=== PATIENT | female | born 1930 | race Caucasian/White ===

== ENCOUNTER 2016-07-02 13:07 | Day surgery (SDC) | payer MEDICARE, OTHER ==
--- NOTE | 2016-07-02 14:18 | PCM.PREANE ---
Preanesthetic Assessment - ANESTHESIA/TRANSFUSION/FAMILY HX Anesthesia/Transfusion History: No Prior Transfusion(s), Prior Anesthesia Type of Anesthesia Reaction: Denies: Allergy, Anesthesia Awareness, Excessive Somnolence, Excessive Nausea/Vomiting, Excessive Itching, Excessive Shivering, Malignant Hyperthermia, Malignant Hyperthermia, Family History, Pseudocholinesterase Deficiency, Pseudocholinesterase Deficiency, Family History of, Urinary Retention, Unknown, Other (see below) Family History of Anesthesia Reaction: No Intubation History: Unknown - REVIEW OF SYSTEMS Constitutional: Reports: no symptoms 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 (right sided weakness since stroke 07/2015/ TIA also noted.) Respiratory: Reports: no symptoms (former smoker quit 1959) Cardiovascular: Reports: no symptoms (History of PR with stents placed 2014./CAD ), blood pressure problem GI: Reports: no symptoms (GERD), nausea (and distension) Other: Reports: depression - PHYSICAL ASSESSMENT HR: 79 O2 Sat by Pulse Oximetry: 96 RR: 16 BP: 138/89 Temp: 36.3 C Height: 1.63 m Weight: 47.174 kg NPO Status Date: 07/02/16 NPO Status Time: 05:00 (toast and coffee) ASA Class: 3 Mental Status: alert & oriented x3 Airway Class: Mallampati = 2 Dentition: Reports: normal dentition, caries Thyro-Mental Finger Breadths: 3 Mouth Opening Finger Breadths: 3 ROM/Head Extension: full Respiratory Status: lungs clear to auscultation bilaterally Cardiovascular Status: regular rate & rhythm, normal S1, S2, no murmur - IMAGING/EKG Impressions: EK: SR, repolarization abnormality siggests ischemia, anterolateral, prolonged QT - ALLERGIES Allergies/Adverse Reactions: Allergies Allergy/AdvReac Type Severity Reaction Status Date / Time nitrofurantoin Allergy Nausea and Verified 11/26/15 16:04 [From Macrobid] Vomiting nitrofurantoin Allergy Nausea and Verified 11/26/15 16:04 macrocrystalline Vomiting [From Macrobid] - ANESTHESIA PLAN Preop Beta Eugene: No Anesthesia Type Planned: MAC - ACKNOWLEDGEMENTS Pt an appropriate candidate for the planned anesthesia: Yes Alternatives and risks of anesthesia discussed w pt/guardian: Yes Pt/Guardian understands and agree with anesthesia plan: Yes PreAnesthesia Questionnaire Other HEENT History: wears eyeglasses Cardiovascular History: Reports: Hypertension, PR, PTCA, Stents Other Cardiovascular History: stent placment in Feb 2015. Other Gastrointestinal History: ongoing abdominal pains for several months. 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 They proved to be benign. One was the size of a softball and the other one was the size of a lemon. Surgery was carried out by Dr. Ny in [place]. Other Musculoskeletal History: fx pelvis, fx R) clavicle Neurological History: Reports: Migraines - Infectious Disease History Infectious Disease History: Reports: Chicken pox, Mumps - Past Surgical History Female Surgical History: Reports: Hysterectomy - SUBSTANCE USE Smoking Status *Q: Former Smoker Tobacco Use Within Last Twelve Months: No Second Hand Smoke Exposure: No Recreational Drug Use History: No - HOME MEDS Home Medications: Home Meds Cholecalciferol (Vitamin D3) [Vitamin D3] 2,000 unit PO DAILY 01/25/15 [History] Clopidogrel Bisulfate [Plavix] 75 mg PO DAILY 01/25/15 [History] Metoprolol Tartrate [Lopressor] 12.5 mg PO BID 01/25/15 [History] atorvaSTATin [Lipitor] 10 mg PO DAILY 01/25/15 [History] Zolpidem [Ambien] 5 mg PO BEDTIME 04/21/15 [History] Cyanocobalamin (Vitamin B-12) [Vitamin B-12] 1,000 mcg PO DAILY 09/28/15 [ History] Polyethylene Glycol 3350 [MiraLAX] 17 gm PO DAILY PRN #0 packet 11/28/15 [Rx]
[2016-07-02] MEDS ORDERED: Lidocaine 1%/Sod Bicarbonate in NS 8.4% 1 ML Syringe IV ONE (15:03)
[2016-07-02] MEDS ORDERED: Lactated Ringers 1,000 ML IV SCH (15:15)
[2016-07-02] MEDS ORDERED: Propofol 200 MG/20 ML SDV ONE (15:58)
[2016-07-02] MEDS ORDERED: Lidocaine 1% 2 ML SDV ONE (16:01)
--- NOTE | 2016-07-02 16:20 | PCM48HPAN ---
Post Anesthesia Note - EVALUATION WITHIN 48HRS OF ANESTHETIC Vital Signs in Normal Range: Yes Patient Participated in Evaluation: Yes Respiratory Function Stable: Yes Airway Patent: Yes Cardiovascular Function Stable: Yes Hydration Status Stable: Yes Pain Control Satisfactory: Yes Nausea and Vomiting Control Satisfactory: Yes Mental Status Recovered: Yes
--- NOTE | 2016-07-02 16:26 | PCM.OPNOTE ---
- General Post-Op/Procedure Note Date of Surgery/Procedure: 07/02/16 Operative Procedure(s): Diagnostic EGD with cold forceps biopsy Pre Op Diagnosis: Chronic abdominal pain, melena Post-Op Diagnosis: Gastritis, gastric polyps Anesthesia Technique: MAC Primary Surgeon: Hoa Weston Anesthesia Provider: Sheila Wade Pathology: 1. Small bowel biopsy 2. Antral biopsy 3. Distal esophageal biopsy 4. Gastric polyps Fluid Replacement, Intraop: 300 (mL crystalloid) EBL in mLs: 1 Complications: None Condition: Good Free Text/Narrative:: INDICATION FOR PROCEDURE: The patient is an 85-year-old woman who is referred to me by Dr. Fred Gonzalez for evaluation of chronic abdominal pain. EGD had been discussed with the patient and risks of the associated procedure. The patient found these risks acceptable and agreed to proceed. DESCRIPTION OF PROCEDURE: The patient was taken to the operating room and placed in the left lateral decubitus position. After induction of adequate sedation, a bite block was placed. A standard Olympus gastroscope was inserted into the oropharynx and guided down the esophagus without difficulty. The gastroesophageal junction was appreciated at 40 cm from the teeth. There was no evidence of stricture or esophageal ulcerations. The scope was advanced into the stomach, and there was mild diffuse gastritis. The scope was passed into the proximal jejunum and the duodenum which were unremarkable. There were no petechiae or ulcerations. The proximal jejunum was grossly normal in appearance. Multiple cold forceps biopsies were obtained of the proximal jejunum and duodenum. The scope was withdrawn into the antrum, and additional cold forceps biopsies were obtained. The remainder of the gastric body was examined, and there a couple of gastric polyps at the cardia, 2 of the polyps were removed using cold forceps. The scope was retroflexed, and there was no evidence of hiatal hernia. The scope was straightened and withdrawn to the GE junction. Additional cold forceps biopsies were obtained of the distal esophagus. The scope was withdrawn through the remainder of the esophagus and no further abnormalities were noted. The posterior oropharynx was grossly normal in appearance. The scope was then fully withdrawn. The patient was awakened from sedation and transferred to the recovery room in stable condition having tolerated the procedure well. POSTOPERATIVE PLAN: I discussed with the patient my intraoperative findings and postoperative recommendations. The patient will follow up in approximately 7- 10 days to discuss their pathology and how their symptoms are progressing. The patient is to continue Protonix and Carafate. I have asked the patient to follow a GERD\gastritis diet. The patient is to call with any worsening of symptoms or questions prior to appointment. If biopsies are unremarkable, colonoscopy could be considered.
[2016-07-02 17:15] VITALS: BP 139/77
== END 2016-07-02 17:16 | disposition home or self-care (01) ==
LOC: JD.SDS 13:07
PROVIDERS: ATTEND Surgery
DX: K29.50 Unspecified chronic gastritis without bleeding (principal); E78.5 Hyperlipidemia, unspecified; I25.10 Atherosclerotic heart disease of native coronary artery without angina pectoris; I25.2 Old myocardial infarction; M19.90 Unspecified osteoarthritis, unspecified site; K21.9 Gastro-esophageal reflux disease without esophagitis; I10 Essential (primary) hypertension; G43.909 Migraine, unspecified, not intractable, without status migrainosus; M81.0 Age-related osteoporosis without current pathological fracture; Z88.8 Allergy status to other drugs, medicaments and biological substances; Z79.899 Other long term (current) drug therapy; Z90.49 Acquired absence of other specified parts of digestive tract; Z98.890 Other specified postprocedural states; Z87.891 Personal history of nicotine dependence; Z79.02 Long term (current) use of antithrombotics/antiplatelets
CPT/HCPCS: 43239; 88305; J7120; J2704

== ENCOUNTER 2016-09-17 10:21 | Day surgery (SDC) | payer MEDICARE, OTHER ==
--- NOTE | 2016-09-17 06:29 | PCM.HP ---
H&P History of Present Illness - General Date of Service: 09/17/16 Admit Problem/Dx: abdominal pain, nausea, early satiety, weight loss, constipation, hx of anemia, Source of Information: Patient - History of Present Illness Initial Comments - Free Text/Narative: The patient is a 85-year-old female initially referred by Anamika Galindo NP for evaluation of nausea. Patient's PCP is Dr. Gonzalez. Patient wanted colonoscopy in 2015 to evaluate her symptoms. Family was at one time concerned this may be detrimental. Family and PCP felt upper endoscopy would be appropriate to start. Patient is a resident of [facility]. Patient is known to the clinic, she did see Dr. Pretty from -11/2015 and was started on a bowel regimen. Miralax and Metamucil. Her symptoms improved. Gastric emptying study was normal. She had a CT scan of the abdomen and pelvis , nothing acute, small fat containing inguinal hernia noted. Aorta with arthrosclerotic change, no aneurysm. Endoscopy was deferred as she was doing well in November of 2015. Her symptoms worsened. The patient then underwent an diagnostic EGD for chronic abdominal pain and melena with Dr. Hoa Weston at [facility] on 07/02/2016 . The procedure revealed mild diffuse gastritis . Dr. Weston did start the patient on Protonix and Carafate. Patient was advised start a GERD gastritis diet. Dr. Weston did note if biopsies were unremarkable colonoscopy can be considered.findings of diffuse gastritis (pathology mild gastritis) and gastric polyp She was initially doing well after EGD and was gaining weight, however, in August her symptoms again worsened. I last saw the patient 08/15/16. She was having abdominal pain, early satiety, decreased appetitte, constipation, occasional nausea and weight loss. She desired a colonoscopy. She reports no changes in her health history. Her weight is 86.5 pounds per [place] paperwork. She reports she did finish the prep and did have small frequent stools last night. Day surgery staff report she had a honey consistency stool this am in pre-op. Patient still complains of generalized abdominal pain, low appetite and lack of interest in activitites. She would like to proceed with colonoscopy. 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 MRI has been ordered to further evaluate. Her CBC and CMP were recently drawn and were also acceptable with the exception of macrocytosis. - Related Data Allergies/Adverse Reactions: Allergies Allergy/AdvReac Type Severity Reaction Status Date / Time nitrofurantoin Allergy Nausea and Verified 09/16/16 16:08 [From Macrobid] Vomiting nitrofurantoin Allergy Nausea and Verified 09/16/16 16:08 macrocrystalline Vomiting [From Macrobid] Home Medications: Home Meds Cholecalciferol (Vitamin D3) [Vitamin D3] 2,000 unit PO DAILY 01/25/15 [History] Acetaminophen [Tylenol] 650 mg PO Q6HR PRN 07/02/16 [History] Alpha Lipoic Acid 600 mg PO DAILY 07/02/16 [History] Gabapentin [Neurontin] 100 mg PO TID 07/02/16 [History] Multivitamin with Minerals [Multiple Vitamin] 1 each PO DAILY 07/02/16 [History] Ondansetron [Zofran ODT] 4 mg PO Q6H PRN 07/02/16 [History] Pantoprazole Sodium [Protonix] 40 mg PO BID 07/02/16 [History] Nut Tx, Lact-Reduced, Iron [Boost VHC] 237 ml PO QID 09/16/16 [History] Polyethylene Glycol 3350 [MiraLAX] 17 gm PO DAILY PRN 09/16/16 [History] Aspirin [Adult Low Dose Aspirin EC] 81 mg PO DAILY 09/17/16 [History] Past Medical History HEENT History: Reports: Macular Degeneration Other HEENT History: wears eyeglasses Cardiovascular History: Reports: Hypertension, [place], PTCA, Stents Other Cardiovascular History: stent placment in Feb 2015. 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 They proved to be benign. One was the size of a softball and the other one was the size of a lemon. Surgery was carried out by Dr. Ny in [place]. 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 Pne size of grapefruit, one size of lemon. Pt verbalized decreased abdominal pain since surgery Social & Family History - Family History Family Medical History: Noncontributory Cardiac: Reports: IN - Tobacco Use Smoking Status *Q: Former Smoker Years of Tobacco use: 12 Packs/Tins Daily: 1 Used Tobacco, but Quit: Yes Month Tobacco Last Used: 1959 Second Hand Smoke Exposure: No - Recreational Drug Use Recreational Drug Use: No - Living Situation & Occupation Living situation: Reports: , Alone H&P Review of Systems - Review of Systems: Review Of Systems: See Below Free Text/Narrative: No changes to ROS. Denies any exertional chest pain or shortness of breath. No history of any easy bleeding or bruising. No personal or familial history of clotting or bleeding disorders. No history of anesthetic complications. No history of familial anesthetic complications. Presently denies chest pain, palpitations, lower extremity edema, dyspnea at rest, orthopnea, claudication, wheezing, obstructive sleep apnea, chronic cough , upper respiratory symptoms in the last two weeks. History of blood thinner use , stopped in 2016 after stenting. History of anemia. No history of seizure. Hx of stroke, no intervention. No history of fever, chills, or nightsweats General: Reports: Weakness, Fatigue, Decreased Appetite, Other (weight loss ). Denies: Fever HEENT: Reports: No Symptoms Pulmonary: Reports: No Symptoms. Denies: Shortness of Breath, Wheezing Cardiovascular: Reports: No Symptoms. Denies: Chest Pain, Palpitations Gastrointestinal: Reports: Abdominal Pain (generalized), Constipation, Decreased Appetite, Nausea. Denies: Black Stool, Bloody Stool, Diarrhea, Melena , Vomiting Genitourinary: Reports: No Symptoms Musculoskeletal: Reports: No Symptoms Skin: Reports: No Symptoms Psychiatric: Reports: No Symptoms Neurological: Reports: No Symptoms Hematologic/Lymphatic: Reports: No Symptoms Immunologic: Reports: No Symptoms Exam - Exam Exam: See Below - Vital Signs Weight: 39.916 kg - Exam General: Alert, Oriented, Other (thin and frail appearing) HEENT: Conjunctiva Clear Lungs: Clear to Auscultation, Normal Respiratory Effort Cardiovascular: Regular Rate, Regular Rhythm, Normal S1, Normal S2 Abdomen: Soft, Tenderness (tenderness to LLQ, umbilicus and right lateral abdomen on exam to deep palpation). No: Distention, Guarding Back Exam: Normal Inspection (multiple seborrheic keratoses) Extremities: Normal Inspection Skin: Warm, Dry, Intact Neuro Extensive - Mental Status: Alert, Oriented x3, Normal Mood/Affect, Normal Cognition, Memory Intact Psychiatric: Alert, Normal Affect, Normal Mood *Q Meaningful Use (ADM) - VTE *Q VTE Criteria *Q: - Stroke *Q Stroke Criteria *Q: - AMI *Q AMI Criteria *Q: - Problem List (1) Abdominal pain SNOMED Code(s): 13261763 ICD Code: R10.9 - UNSPECIFIED ABDOMINAL PAIN Status: Acute Current Visit : Yes (2) Early satiety SNOMED Code(s): 279838119 ICD Code: R68.81 - EARLY SATIETY Status: Acute Current Visit: Yes (3) Weight loss SNOMED Code(s): 604894349, 452388419 ICD Code: R63.4 - ABNORMAL WEIGHT LOSS Status: Acute Current Visit: Yes (4) Constipation SNOMED Code(s): 76891214 ICD Code: K59.00 - CONSTIPATION, UNSPECIFIED Status: Acute Current Visit : Yes Qualifiers: Constipation type: unspecified constipation type Qualified Code(s): K59.00 - Constipation, unspecified (5) History of anemia SNOMED Code(s): 943084102 ICD Code: Z86.2 - PRSNL HISTORY OF DIS OF THE BLD/BLD-FORM ORG/IMMUN MECHN Status: Acute Current Visit: Yes (6) Early satiety SNOMED Code(s): 075521854 ICD Code: R68.81 - EARLY SATIETY Status: Acute Current Visit: No Problem List Initiated/Reviewed/Updated: Yes Assessment/Plan Comment:: 85yr female with abdominal pain, nausea, early satiety, weight loss, constipation, hx of anemia, need for diagnostic colonoscopy. Patient is frail, hx of [place] 2014, ovarian cystectomy 2014, stroke 2016, TIA 2015 , intertrochanteric fracture 2016 PLAN: Patient desires colonoscopy. Family is agreeable. We discussed performing a diagnostic colonoscopy. We discussed the procedure and post operative expectations. We discussed the risks and benefits, including, pain, bleeding, need for additional procedures, damage to surrounding structures, bowel perforation. She reports she did complete the colonoscopy prep, however, has had honey consistency stools this am in pre-op. She has some generalized abdominal pain and tenderness, which is baseline for her. I personally reviewed the patient's previous medical records and laboratory studies. Patient verbalized understanding and agreed with care plan. This patient was evaluated with Dr. Hoa Weston. TIMBO Trevizo scribing for Dr. Hoa Weston General Surgery Department [facility]
--- NOTE | 2016-09-17 09:23 | PCM.OPNOTE ---
- General Post-Op/Procedure Note Date of Surgery/Procedure: 09/17/16 Operative Procedure(s): Diagnostic colonoscopy with cold forceps polypectomy Pre Op Diagnosis: Weight loss, abdominal pain, early satiety, constipation Post-Op Diagnosis: Small ascending colon polyp Anesthesia Technique: MAC Primary Surgeon: Hoa Weston Anesthesia Provider: Corwin Brito Linter Operator: Fatuma Townsend Pathology: 1. Ascending colon polyp Complications: None Condition: Good Free Text/Narrative:: FLUIDS: 600 mL crystalloid INDICATION FOR PROCEDURE: The patient is an 85-year-old woman who was referred to me by Dr. Fred Gonzalez and SHAHEEN Dominguez for evaluation for abdominal pain , weight loss, constipation. Diagnostic EGD had been previously performed which showed mild diffuse gastritis. Performing a diagnostic colonoscopy and the associated risks of the procedure had been discussed with the patient. The patient found these risks acceptable and agreed to proceed. DESCRIPTION OF PROCEDURE: The patient was taken to the operating room and placed in left lateral decubitus position. After induction of adequate sedation , a digital rectal exam was performed which was unremarkable. A pediatric Olympus colonoscope was inserted into the rectum and guided under direct visualization to the appendiceal orifice and ileocecal valve. Counter pressure was utilized to facilitate passage of the scope. The scope was then slowly withdrawn through the colon. The quality of the prep was excellent. There was no evidence of angiodysplasias. There was severe diverticulosis throughout the sigmoid colon. There was a small polyp noted in the ascending colon which was removed with cold forceps. The scope was withdrawn into the rectum and retroflexed. There was no significant prominence of the patient's internal hemorrhoids. The scope was straightened, the colon was desufflated, and the scope was withdrawn. The patient was awakened from sedation and transferred to the recovery room in stable condition having tolerated the procedure well. POSTOPERATIVE PLAN: I discussed with the patient's relative, Gayatri, my intraoperative findings and recommendations. She should proceed with MRI of the abdomen to further investigate the possibility of pancreatic lesion. No further colonoscopies are recommended. There was no source of her symptoms identified on colonoscopy today and a letter will be sent with her pathology results.
[~2016-09-17 10:21] MED LIST: Lactated Ringers 1,000 ML IV SCH; Lidocaine 1%/Sod Bicarbonate in NS 8.4% 1 ML Syringe IV PRN; Sodium Chloride 0.9% 10 ML Syringe FLUSH PRN
--- NOTE | 2016-09-17 10:40 | PCM.PREANE ---
Preanesthetic Assessment - Anesthesia/Transfusion/Family Hx Anesthesia History: Prior Anesthesia Without Reaction Family History of Anesthesia Reaction: No Transfusion History: No Prior Transfusion(s) - Review of Systems General: No Symptoms Pulmonary: No Symptoms Cardiovascular: No Symptoms Gastrointestinal: Abdominal pain, Constipation, Other (wt loss) Neurological: Other (stroke 2-3 years ago) Other: Reports: None - Physical Assessment NPO Status Date: 09/16/16 NPO Status Time: 22:00 (pills with sip this am) Pulse: 90 O2 Sat by Pulse Oximetry: 97 Respiratory Rate: 16 Blood Pressure: 141/85 Temperature: 99.0 F Height: 5 ft 4 in Weight: 39.916 kg ASA Class: 3 Mental Status: Alert & Oriented x3 Airway Class: Mallampati = 1 Dentition: Reports: Normal Dentition Thyro-Mental Finger Breadths: 3 Mouth Opening Finger Breadths: 3 ROM/Head Extension: Full Lungs: Clear to auscultation, Normal respiratory effort Cardiovascular: Regular Rate, Regular Rhythm - Allergies Allergies/Adverse Reactions: Allergies Allergy/AdvReac Type Severity Reaction Status Date / Time nitrofurantoin Allergy Nausea and Verified 09/16/16 16:08 [From Macrobid] Vomiting nitrofurantoin Allergy Nausea and Verified 09/16/16 16:08 macrocrystalline Vomiting [From Macrobid] - Blood Blood Available: No - Acknowledgements Anesthesia Type Planned: MAC Pt an Appropriate Candidate for the Planned Anesthesia: Yes Alternatives and Risks of Anesthesia Discussed w Pt/Guardian: Yes Pt/Guardian Understands and Agrees with Anesthesia Plan: Yes PreAnesthesia Questionnaire HEENT History: Reports: Macular Degeneration Other HEENT History: wears eyeglasses Cardiovascular History: Reports: Hypertension, [place], PTCA, Stents Other Cardiovascular History: stent placment in Feb 2015. 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 They proved to be benign. One was the size of a softball and the other one was the size of a lemon. Surgery was carried out by Dr. Ny in [place]. 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 Pne size of grapefruit, one size of lemon. Pt verbalized decreased abdominal pain since surgery - SUBSTANCE USE Smoking Status *Q: Former Smoker (quit 1959) Tobacco Use Within Last Twelve Months: No Second Hand Smoke Exposure: No Days Per Week of Alcohol Use: 0 Recreational Drug Use History: No - HOME MEDS Home Medications: Home Meds Cholecalciferol (Vitamin D3) [Vitamin D3] 2,000 unit PO DAILY 01/25/15 [History] Acetaminophen [Tylenol] 650 mg PO Q6HR PRN 07/02/16 [History] Alpha Lipoic Acid 600 mg PO DAILY 07/02/16 [History] Gabapentin [Neurontin] 100 mg PO TID 07/02/16 [History] Multivitamin with Minerals [Multiple Vitamin] 1 each PO DAILY 07/02/16 [History] Ondansetron [Zofran ODT] 4 mg PO Q6H PRN 07/02/16 [History] Pantoprazole Sodium [Protonix] 40 mg PO BID 07/02/16 [History] Nut Tx, Lact-Reduced, Iron [Boost VHC] 237 ml PO QID 09/16/16 [History] Polyethylene Glycol 3350 [MiraLAX] 17 gm PO DAILY PRN 09/16/16 [History] - CURRENT (IN HOUSE) MEDS Current Meds: Current Medications Lactated Ringer's (Ringers, Lactated) 1,000 mls @ 125 mls/hr IV ASDIRECTED JUANA Stop: 09/17/16 23:00 Lidocaine/Sodium Bicarbonate (Buffered Lidocaine 1% In Ns 8.4%) 0.25 ml IV ONETIME PRN PRN Reason: Prior to IV Start Stop: 09/17/16 18:00 Sodium Chloride (Saline Flush) 10 ml FLUSH ASDIRECTED PRN PRN Reason: Keep Vein Open Stop: 09/17/16 18:00
[2016-09-17] MEDS ORDERED: Lidocaine 1% 4 ML ONE (12:18)
[2016-09-17] MEDS ORDERED: Propofol 200 MG/20 ML SDV ONE (12:18)
[2016-09-17 12:42] VITALS: BP 112/56
== END 2016-09-17 13:17 | disposition home or self-care (01) ==
LOC: JD.SDS 10:21
PROVIDERS: ATTEND Surgery
PROC: 0DBK8ZZ Excision of Ascending Colon, Via Natural or Artificial Opening Endoscopic (ICD-10-PCS; principal; 2016-09-17)
DX: R10.9 Unspecified abdominal pain (principal); D12.2 Benign neoplasm of ascending colon; K57.30 Diverticulosis of large intestine without perforation or abscess without bleeding; R63.4 Abnormal weight loss; K59.00 Constipation, unspecified; R68.81 Early satiety
CPT/HCPCS: 45380; 88305; J7120; J2704

== ENCOUNTER 2017-05-18 14:53 | Inpatient (IN) | payer MEDICARE, OTHER ==
[2017-05-18] MEDS ORDERED: traMADol 50 MG Tab PO ONE (15:25)
--- NOTE | 2017-05-18 15:46 | EDM.PDOC ---
ED HPI GENERAL MEDICAL PROBLEM - General Chief Complaint: Upper Extremity Injury/Pain Stated Complaint: SENT BY [facility] Time Seen by Provider: 05/18/17 15:06 Source of Information: Reports: Patient, Retirement Records History Limitations: Reports: No Limitations - History of Present Illness INITIAL COMMENTS - FREE TEXT/NARRATIVE: The patient was in her bathroom and she tripped and lost her balance. She was using her walker and she fell and hit the right side of her head and her right shoulder. She has an abrasion to the right side of her occipital area. She has some pain to her neck. She has an obvious injury to her right shoulder with edema and ecchymosis. She has no chest pain, shortness of breath or abdominal pain. She has no pelvic or hip pain. Onset: Sudden Duration: Minutes: Location: Reports: Head, Neck, Upper Extremity, Right (Shoulder) Quality: Reports: Sharp Severity: Moderate Improves with: Reports: Immobilization Worsens with: Reports: Movement Context: Reports: Activity (She was walking with her walker in the bathroom and triped) Associated Symptoms: Reports: No Other Symptoms right shoulder Pain Score (Numeric/FACES): 10 - Related Data Allergies Allergy/AdvReac Type Severity Reaction Status Date / Time nitrofurantoin Allergy Nausea and Verified 05/18/17 15:10 [From Macrobid] Vomiting nitrofurantoin Allergy Nausea and Verified 05/18/17 15:10 macrocrystalline Vomiting [From Macrobid] Home Meds: Home Meds Cholecalciferol (Vitamin D3) [Vitamin D3] 2,000 unit PO DAILY 01/25/15 [History] Acetaminophen [Tylenol] 650 mg PO Q6HR PRN 07/02/16 [History] Alpha Lipoic Acid 600 mg PO DAILY 07/02/16 [History] Gabapentin [Neurontin] 100 mg PO BID 07/02/16 [History] Multivitamin with Minerals [Multiple Vitamin] 1 each PO DAILY 07/02/16 [History] Ondansetron [Zofran ODT] 4 mg PO Q6H PRN 07/02/16 [History] Pantoprazole Sodium [Protonix] 40 mg PO BID 07/02/16 [History] Polyethylene Glycol 3350 [MiraLAX] 17 gm PO DAILY 09/16/16 [History] Aspirin [Adult Low Dose Aspirin EC] 81 mg PO DAILY 09/17/16 [History] Benzocaine/Menthol [Cepacol Sore Throat Lozenge] 1 each MM ASDIRECTED PRN [History] Clotrimazole [Lotrimin AF] 1 applic TP BID 05/18/17 [History] Compression Socks, Medium [Futuro Restoring] 1 each MC ASDIRECTED 05/18/17 [ History] Mirtazapine [Remeron] 15 mg PO BEDTIME 05/18/17 [History] Nut.Tx.Impaired Digest Fxn [Ensure Clear] 4 oz PO QID 05/18/17 [History] Sertraline [Zoloft] 50 mg PO DAILY 05/18/17 [History] Past Medical History HEENT History: Reports: Macular Degeneration Other HEENT History: wears eyeglasses Cardiovascular History: Reports: Hypertension, [place], PTCA, Stents Other Cardiovascular History: stent placment in Feb 2015. 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 They proved to be benign. One was the size of a softball and the other one was the size of a lemon. Surgery was carried out by Dr. Ny in [place]. 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 Pne size of grapefruit, one size of lemon. Pt verbalized decreased abdominal pain since surgery Social & Family History - Family History Family Medical History: Noncontributory Cardiac: Reports: OR - Tobacco Use Smoking Status *Q: Never Smoker Years of Tobacco use: 12 Packs/Tins Daily: 1 Used Tobacco, but Quit: Yes Month Tobacco Last Used: 1959 Second Hand Smoke Exposure: No - Caffeine Use Caffeine Use: Reports: Coffee - Alcohol Use Days Per Week of Alcohol Use: 0 - Recreational Drug Use Recreational Drug Use: No - Living Situation & Occupation Living situation: Reports: , Alone Review of Systems - Review of Systems Review Of Systems: See Below Constitutional: Reports: No Symptoms Eyes: Reports: No Symptoms Ears: Reports: No Symptoms Nose: Reports: No Symptoms Mouth/Throat: Reports: No Symptoms Respiratory: Reports: No Symptoms Cardiovascular: Reports: No Symptoms GI/Abdominal: Reports: No Symptoms Genitourinary: Reports: No Symptoms Musculoskeletal: Reports: Neck Pain, Shoulder Pain (Right) ED EXAM, GENERAL - Physical Exam Exam: See Below Exam Limited By: No Limitations General Appearance: Alert, No Apparent Distress Ears: Normal External Exam Nose: Normal Inspection Head: Other (Abrasion to the right occipital region) Neck: Other (Mid c-spine tenderness and pain with movement) Respiratory/Chest: No Respiratory Distress, Lungs Clear, Normal Breath Sounds, Other (Pain upon palpation to the right anterior chest) Cardiovascular: Regular Rate, Rhythm, No Edema, No Murmur GI/Abdominal: Soft, Non-Tender, No Organomegaly, No Mass Extremities: Other (Edema, ecchymosis to the right shoulder. Good sensation and pulses distally. Pain upon palpation to the right elbow with some abrasions.) Course - Vital Signs Last Recorded V/S: Last Vital Signs Temp 97.5 F 05/18/17 14:58 Pulse 88 05/18/17 14:58 Resp 18 05/18/17 14:58 BP 152/89 H 05/18/17 14:58 Pulse Ox 96 05/18/17 14:58 - Orders/Labs/Meds Orders: Active Orders 24 hr Category Date Time Status Peripheral IV Care [RC] . DIRECTED Care 05/18/17 16:36 Active Elbow Min 3V Rt [CR] Stat Exams 05/18/17 16:35 Taken Sodium Chloride 0.9% [Saline Flush] Med 05/18/17 16:35 Active 10 ml FLUSH ASDIRECTED PRN Durable Medical Equipment for Discharge [DME for Oth 05/18/17 16:45 Ordered Discharge] [COMM] Stat Peripheral IV Insertion Adult [OM.PC] Routine Oth 05/18/17 16:35 Ordered Medication Orders Sodium Chloride (Saline Flush) 10 ml FLUSH ASDIRECTED PRN PRN Reason: Keep Vein Open Last Admin: 05/18/17 16:54 Dose: 10 ml Meds: Medications Generic Name Dose Route Start Last Admin Trade Name Freq PRN Reason Stop Dose Admin Sodium Chloride 10 ml 05/18/17 16:35 05/18/17 16:54 Saline Flush FLUSH 10 ml ASDIRECTED PRN Administration Keep Vein Open Discontinued Medications Generic Name Dose Route Start Last Admin Trade Name Freq PRN Reason Stop Dose Admin Hydromorphone HCl 0.5 mg 05/18/17 16:35 05/18/17 16:51 Dilaudid IVPUSH 05/18/17 16:36 0.5 mg ONETIME ONE Administration Tramadol HCl 50 mg 05/18/17 15:25 05/18/17 15:55 Ultram PO 05/18/17 15:26 50 mg ONETIME ONE Administration - Re-Assessments/Exams Free Text/Narrative Re-Assessment/Exam: 05/18/17 15:46 I ordered an ultram for her pain, CT of her head, cervical spine, and chest. I also ordered an x-ray of her shoulder. 05/18/17 17:[address] of her head shows senescent change. Slight soft tissue swelling within the posterior right parietal scalp. NO acute intracranial abnormality is identified. The CT of her cervical spine shows degenerative change. Osteopenia is seen. No acute abnormality is identified on CT study of the cervical spine. The CT of her chest shows right proximal humeral fracture and 3 minimally displaced anterior right rib fractures. The x-ray of her right shoulder shows a right humeral fracture. She is having more pain from her traumatic rib fractures and proximal humerus fracture. I ordered an IV saline lock and dilaudid 0.5mg IV. She also has pain in her right elbow. I ordered an x-ray and there is no fracture. 05/18/17 17:[address] Valdez and there is nothing surgical to be done for the proximal humerus. I feels she needs to be admitted for her proximal humerus fracture and traumatic rib fractures. I called Dr Cai and he agreed to the admission. Departure - Departure Time of Disposition: 17:20 Disposition: Home, Self-Care 01 Condition: Good Clinical Impression: Fall Qualifiers: Encounter type: initial encounter Qualified Code(s): W19.XXXA - Unspecified fall, initial encounter Head injury Qualifiers: Encounter type: initial encounter Qualified Code(s): S09.90XA - Unspecified injury of head, initial encounter Abrasion of scalp Qualifiers: Encounter type: initial encounter Qualified Code(s): S00.01XA - Abrasion of scalp, initial encounter Proximal humerus fracture Qualifiers: Encounter type: initial encounter Fracture type: closed Fracture morphology: unspecified fracture morphology Laterality: right Qualified Code(s): S42.201A - Unspecified fracture of upper end of right humerus, initial encounter for closed fracture Traumatic closed fracture of multiple ribs of right side with minimal displacement Qualifiers: Encounter type: initial encounter Qualified Code(s): S22.41XA - Multiple fractures of ribs, right side, initial encounter for closed fracture Abrasion of right elbow Qualifiers: Encounter type: initial encounter Qualified Code(s): S50.311A - Abrasion of right elbow, initial encounter - Discharge Information Referrals: Fred Gonzalez MD [Primary Care Provider] - Forms: ED Department Discharge - My Orders Last 24 Hours: My Active Orders 05/18/17 16:35 Elbow Min 3V Rt [CR] Stat Sodium Chloride 0.9% [Saline Flush] 10 ml FLUSH ASDIRECTED PRN Peripheral IV Insertion Adult [OM.PC] Routine 05/18/17 16:36 Peripheral IV Care [RC] . DIRECTED 05/18/17 16:45 Durable Medical Equipment for Discharge [DME for Discharge] [COMM] Stat - Assessment/Plan Last 24 Hours: My Active Orders 05/18/17 16:35 Elbow Min 3V Rt [CR] Stat Sodium Chloride 0.9% [Saline Flush] 10 ml FLUSH ASDIRECTED PRN Peripheral IV Insertion Adult [OM.PC] Routine 05/18/17 16:36 Peripheral IV Care [RC] . DIRECTED 05/18/17 16:45 Durable Medical Equipment for Discharge [DME for Discharge] [COMM] Stat
--- NOTE | 2017-05-18 16:00 | CT ---
CT cervical spine Technique: Multiple axial sections were obtained from above C1 inferiorly to the bottom of T2. Reconstructed sagittal and coronal images were reviewed. Comparison: No prior cervical spine imaging. Findings: Mild spondylolisthesis is noted at C4-C5 and C5-C6. Slightly more prominent spondylolisthesis is noted at C6-C7. These findings are felt to be due to degenerative apophyseal change. Vertebral body heights are preserved. Degenerative change is noted between the dens and anterior arch of C1. Mastoid sinuses and middle ear cavities appear clear. Posterior skull base is intact. No fracture is identified. Osteopenia is seen. Degenerative change is also noted within both temporomandibular joints. Impression: 1. Degenerative change as described above. Osteopenia is seen. 2. No acute abnormality is identified on CT study of the cervical spine. Diagnostic code #2
--- NOTE | 2017-05-18 16:06 | CT ---
CT chest Technique: Multiple axial sections through the chest were obtained. Intravenous contrast was not utilized. Findings: Proximal right humeral fracture is noted. Minimally displaced fracture is seen within the right anterior third, fourth and fifth ribs. No definite fracture within the thoracic spine or sternum is seen. Mediastinum and hilar regions show no adenopathy or mass. Extensive coronary artery calcification is seen. Atherosclerotic calcification is noted within the thoracic aorta. No pericardial thickening is seen. Lung window settings were reviewed which show the lungs to appear clear. No pleural effusions or pneumothorax is seen. Impression: 1. Right proximal humeral fracture. 2. 3 minimally displaced anterior right rib fractures. 3. Other incidental findings. Diagnostic code #3
--- NOTE | 2017-05-18 16:08 | CT ---
Head CT Technique: Multiple axial sections through the brain were obtained. Intravenous contrast was not utilized. Comparison: No prior head CT, previous MRI brain of 11/27/15. Findings: Ventricles along with basal cisterns and sulci over the convexities are mildly to moderately prominent. Diffuse diminished density is noted within the periventricular and subcortical white matter compatible with small vessel ischemic demyelination change. Several old lacunar infarcts are seen within the basal ganglia. No other abnormal parenchymal densities are seen. No evidence of intracranial hemorrhage. No midline shift or mass effect is seen. Mild atherosclerotic calcification is seen within the carotid siphon. Bone window settings show the visualized sinuses to appear clear. No acute calvarial abnormality is seen. Mild soft tissue swelling is seen within the posterior right parietal scalp. Impression: 1. Senescent change as noted above. Slight soft tissue swelling within the posterior right parietal scalp. 2. No acute intracranial abnormality is identified. Diagnostic code #2
--- NOTE | 2017-05-18 16:12 | CR ---
Right shoulder: Three views of the right shoulder were obtained. Surgical neck fracture is seen with fracture also extending in 2 places into the humeral head. Deformity from old healed distal clavicle fracture is seen which is healed. Bony structures are osteoporotic. No additional abnormality is seen. Impression: 1. Right humeral fracture as described above. Other incidental findings. Diagnostic code #3
[2017-05-18] MEDS ORDERED: Sodium Chloride 0.9% 10 ML Syringe FLUSH PRN (16:35)
[2017-05-18] MEDS ORDERED: HYDROmorphone 0.5 MG/0.5 ML Syringe IVPUSH ONE (16:35)
--- NOTE | 2017-05-18 19:01 | PCM.HP ---
H&P History of Present Illness - General Date of Service: 05/18/17 Admit Problem/Dx: Admission Diagnosis/Problem Admission Diagnosis/Problem Rib pain on right side Source of Information: Patient, Old Records, Provider, RN, RN Notes Reviewed History Limitations: Reports: No Limitations - History of Present Illness Initial Comments - Free Text/Narative: Niecy Ribeiro is an 86 yo female who presents to our ED today from [facility] after she fell in her bathroom she reportedly tripped and lost her balance as she was using her walker landing on her right shoulder and right side of her head. An abrasion to the right side of her occipital area and mild pain in her neck. Obvious injury to right shoulder with edema and ecchymosis. No chest pain, short of breath, abdominal pain, pelvic pain, or hip pain. On arrival she was afebrile with a temp of 97.5. Pulse 88. Respirations 18. BP was elevated at 152/89. Pulse ox 96%. Ultram and Dilaudid were given for pain. CT of her head was obtained and shows senescent change. There was slight soft tissue swelling within the posterior right parietal scalp noted. There is no acute intracranial abnormality identified. CT of her cervical spine shows degenerative change and osteopenia. No acute abnormality identified on CT study of the cervical spine. CT of her chest shows right proximal humeral fracture and 3 minimally displaced anterior right rib fractures. X-ray of the shoulders obtained and shows a right humeral fracture. X-ray of the right elbow shows no fracture. Dr. Christensen is consulted by the ED provider and states there is nothing surgically done for her proximal humeral fracture. Labs were not obtained in the ED. She carries a history of: hypertension, ID, PTCA, stent placement in February 2015, GERD, chronic constipation, recurrent UTI, arthritis, osteoporosis, CVA, migraines, peripheral neuropathy, TIA, PCOS. She subsequently admitted to the medical floor. She is a DNR/DNI. Her PCP is Dr. Gonzalez at [facility] in [place]. right shoulder Pain Score (Numeric/FACES): 10 - Related Data Allergies/Adverse Reactions: Allergies Allergy/AdvReac Type Severity Reaction Status Date / Time nitrofurantoin Allergy Nausea and Verified 05/18/17 15:10 [From Macrobid] Vomiting nitrofurantoin Allergy Nausea and Verified 05/18/17 15:10 macrocrystalline Vomiting [From Macrobid] Home Medications: Home Meds Cholecalciferol (Vitamin D3) [Vitamin D3] 2,000 unit PO DAILY 01/25/15 [History] Acetaminophen [Tylenol] 650 mg PO Q6HR PRN 07/02/16 [History] Alpha Lipoic Acid 600 mg PO DAILY 07/02/16 [History] Gabapentin [Neurontin] 100 mg PO BID 07/02/16 [History] Multivitamin with Minerals [Multiple Vitamin] 1 each PO DAILY 07/02/16 [History] Ondansetron [Zofran ODT] 4 mg PO Q6H PRN 07/02/16 [History] Pantoprazole Sodium [Protonix] 40 mg PO BID 07/02/16 [History] Polyethylene Glycol 3350 [MiraLAX] 17 gm PO DAILY 09/16/16 [History] Aspirin [Adult Low Dose Aspirin EC] 81 mg PO DAILY 09/17/16 [History] Benzocaine/Menthol [Cepacol Sore Throat Lozenge] 1 each MM ASDIRECTED PRN [History] Clotrimazole [Lotrimin AF] 1 applic TP BID 05/18/17 [History] Compression Socks, Medium [Futuro Restoring] 1 each MC ASDIRECTED 05/18/17 [ History] Mirtazapine [Remeron] 30 mg PO BEDTIME 05/18/17 [History] Nut.Tx.Impaired Digest Fxn [Ensure Clear] 4 oz PO QID 05/18/17 [History] Sertraline [Zoloft] 50 mg PO DAILY 05/18/17 [History] Past Medical History HEENT History: Reports: Macular Degeneration Other HEENT History: wears eyeglasses Cardiovascular History: Reports: CAD, Hypertension, ID, PTCA, Stents Other Cardiovascular History: stent placment in Feb 2015. Respiratory History: Reports: None Gastrointestinal History: Reports: Colon Polyp, Gastritis, GERD, Other (See Below) Other Gastrointestinal History: inguinal hernia, dysphagia, constipation, epigastric pain, nausea Genitourinary History: Reports: UTI, Recurrent FIELD HAULER History: Reports: Polycystic Ovaries Other OB/BYN History: pt had bilateral large ovarian cyste resected in [facility] last year. They proved to be benign. One was the size of a softball and the other one was the size of a lemon. Surgery was carried out by Dr. Ny in [place]. Musculoskeletal History: Reports: Arthritis, Osteoarthritis, Osteoporosis Other Musculoskeletal History: intertrochanteric fracture, clavicle fracture Neurological History: Reports: CVA, Migraines, Neuropathy, Peripheral, TIA Other Neuro History: Right sided weakness, cerebral vasuclar dysfunction Psychiatric History: Reports: Depression Endocrine/Metabolic History: Reports: None Hematologic History: Reports: Anemia, Other (See Below) Other Hematologic History: hyponatremia Immunologic History: Reports: None Oncologic (Cancer) History: Reports: None Dermatologic History: Reports: Seborrheic Dermatitis - Infectious Disease History Infectious Disease History: Reports: Chicken Pox, Mumps - Past Surgical History Head Surgeries/Procedures: Reports: None HEENT Surgical History: Reports: Cataract Surgery, Detached Retina, Tonsillectomy, Other (See Below) Cardiovascular Surgical History: Reports: Carotid Stents GI Surgical History: Reports: Appendectomy, Colonoscopy, EGD, Other (See Below) Other GI Surgeries/Procedures: functional dyspepsia, polyp of the stomach and duodenum. Female Surgical History: Reports: Hysterectomy Other Female Surgeries/Procedures: Ovarian cysts removed 03/19. Pne size of grapefruit, one size of lemon. Pt verbalized decreased abdominal pain since surgery Social & Family History - Family History Family Medical History: Noncontributory Cardiac: Reports: ID - Tobacco Use Smoking Status *Q: Never Smoker Years of Tobacco use: 12 Packs/Tins Daily: 1 Used Tobacco, but Quit: Yes Month Tobacco Last Used: 1959 Second Hand Smoke Exposure: No - Caffeine Use Caffeine Use: Reports: Coffee - Alcohol Use Days Per Week of Alcohol Use: 0 - Recreational Drug Use Recreational Drug Use: No - Living Situation & Occupation Living situation: Reports: , Alone H&P Review of Systems - Review of Systems: Review Of Systems: See Below General: Reports: Weakness. Denies: Fever, Chills, Malaise, Fatigue HEENT: Reports: No Symptoms. Denies: Headaches, Post Nasal Drip, Sinus Congestion, Sore Throat, Vertigo, Visual Changes Pulmonary: Reports: Pleuritic Chest Pain. Denies: Shortness of Breath, Wheezing , Cough, Sputum Cardiovascular: Reports: Chest Pain (right ribs ). Denies: Palpitations, Dyspnea on Exertion, Edema, Lightheadedness Gastrointestinal: Reports: No Symptoms. Denies: Abdominal Pain, Constipation, Diarrhea, Hematemesis, Hematochezia, Melena, Nausea, Vomiting Genitourinary: Reports: No Symptoms. Denies: Dysuria, Frequency, Burning, Pain , Urgency Musculoskeletal: Reports: Neck Pain, Shoulder Pain (right), Arm Pain (right upper), Other (right rib pain) Skin: Reports: No Symptoms Psychiatric: Reports: No Symptoms Neurological: Reports: No Symptoms Hematologic/Lymphatic: Reports: No Symptoms Immunologic: Reports: No Symptoms Exam - Exam Exam: See Below - Vital Signs Vital Signs: Last Vital Signs Temp 97.9 F 05/18/17 17:57 Pulse 79 05/18/17 17:57 Resp 14 05/18/17 17:57 BP 164/86 H 05/18/17 17:57 Pulse Ox 92 L 05/18/17 17:57 Weight: 88 lb 6.4 oz - Exam Quality Assessment: DVT Prophylaxis General: Alert, Oriented, Cooperative, Mild Distress HEENT: PERRLA, Hearing Intact, Mucosa Moist & [place], Nares Patent, Normal Nasal Septum, Posterior Pharynx Clear, Conjunctiva Clear, EOMI, EACs Clear, TMs Clear Neck: Supple, Trachea Midline, Full Range of Motion, Other (mild pain with movement ) Lungs: Clear to Auscultation, Normal Respiratory Effort, Other ("hurts to breathe deep" ) Cardiovascular: Regular Rate, Regular Rhythm GI/Abdominal Exam: Normal Bowel Sounds, Soft, Non-Tender, No Organomegaly, No Distention, No Abnormal Bruit, No Mass, Pelvis Stable (Female) Exam: Deferred Rectal (Female) Exam: Deferred Back Exam: Normal Inspection, Full Range of Motion Extremities: No Pedal Edema, Normal Capillary Refill, Other (Tenderness, edema and ecchymosis to right shoulder. [id number] in place. ) Peripheral Pulses: 2+: Radial (L), Radial (R), Posterior Tibial (L), Posterior Tibial (R), Dorsalis Pedis (L), Dorsalis Pedis (R) Skin: Warm, Dry, Intact Neurological: Cranial Nerves Intact (grossly) Neuro Extensive - Mental Status: Alert, Oriented x3, Normal Mood/Affect, Normal Cognition, Memory Intact Neuro Extensive - Motor, Sensory, Reflexes: CN II-XII Intact (grossly ) Psychiatric: Alert, Normal Affect, Normal Mood - Patient Data Result Diagrams: 05/18/17 19:55 05/18/17 19:55 *Q Meaningful Use (ADM) - VTE *Q VTE Criteria *Q: - Stroke *Q Stroke Criteria *Q: - AMI *Q AMI Criteria *Q: - Problem List (1) Anemia SNOMED Code(s): 298487900 ICD Code: D64.9 - ANEMIA, UNSPECIFIED Status: Acute Priority: High Current Visit: Yes Qualifiers: Anemia type: unspecified type Qualified Code(s): D64.9 - Anemia, unspecified (2) HTN (hypertension) SNOMED Code(s): 07495129 ICD Code: I10 - ESSENTIAL (PRIMARY) HYPERTENSION Status: Acute Current Visit: Yes (3) GERD (gastroesophageal reflux disease) SNOMED Code(s): 617890010 ICD Code: K21.9 - GASTRO-ESOPHAGEAL REFLUX DISEASE WITHOUT ESOPHAGITIS Status: Acute Current Visit: Yes (4) Arthritis SNOMED Code(s): 3929998 ICD Code: M19.90 - UNSPECIFIED OSTEOARTHRITIS, UNSPECIFIED SITE Status: Acute Current Visit: Yes (5) Age related osteoporosis SNOMED Code(s): 238388348 ICD Code: M81.0 - AGE-RELATED OSTEOPOROSIS W/O CURRENT PATHOLOGICAL FRACTURE Status: Acute Current Visit: Yes (6) Abrasion of right elbow SNOMED Code(s): 163240649 ICD Code: S50.311A - ABRASION OF RIGHT ELBOW, INITIAL ENCOUNTER Status: Acute Current Visit: Yes Qualifiers: Encounter type: initial encounter Qualified Code(s): S50.311A - Abrasion of right elbow, initial encounter (7) Abrasion of scalp SNOMED Code(s): 854837283 ICD Code: S00.01XA - ABRASION OF SCALP, INITIAL ENCOUNTER Status: Acute Current Visit: Yes Qualifiers: Encounter type: initial encounter Qualified Code(s): S00.01XA - Abrasion of scalp, initial encounter (8) Fall SNOMED Code(s): 3131837 ICD Code: W19.XXXA - UNSPECIFIED FALL, INITIAL ENCOUNTER Status: Acute Current Visit: Yes Qualifiers: Encounter type: initial encounter Qualified Code(s): W19.XXXA - Unspecified fall, initial encounter (9) Head injury SNOMED Code(s): 47835298 ICD Code: S09.90XA - UNSPECIFIED INJURY OF HEAD, INITIAL ENCOUNTER Status: Acute Current Visit: Yes Qualifiers: Encounter type: initial encounter Qualified Code(s): S09.90XA - Unspecified injury of head, initial encounter (10) Proximal humerus fracture SNOMED Code(s): 531957313 ICD Code: S42.209A - UNSP FRACTURE OF UPPER END OF UNSP HUMERUS, INIT FOR CLOS FX Status: Acute Current Visit: Yes Qualifiers: Encounter type: initial encounter Fracture type: closed Fracture morphology: unspecified fracture morphology Laterality: right Qualified Code (s): S42.201A - Unspecified fracture of upper end of right humerus, initial encounter for closed fracture (11) Traumatic closed fracture of multiple ribs of right side with minimal displacement SNOMED Code(s): 13469150 ICD Code: S22.41XA - MULTIPLE FRACTURES OF RIBS, RIGHT SIDE, INIT FOR CLOS FX Status: Acute Current Visit: Yes Qualifiers: Encounter type: initial encounter Qualified Code(s): S22.41XA - Multiple fractures of ribs, right side, initial encounter for closed fracture Problem List Initiated/Reviewed/Updated: Yes Orders Last 24hrs: Active Orders 24 hr Category Date Time Status Patient Status [ADT] Routine ADT 05/18/17 17:32 Active Heart Healthy Diet [DIET] Diet 05/19/17 Breakfast Active Medication Orders Sodium Chloride (Saline Flush) 10 ml FLUSH ASDIRECTED PRN PRN Reason: Keep Vein Open Last Admin: 05/18/17 16:54 Dose: 10 ml Assessment/Plan Comment:: I/P: Acute: Rib fractures -2/2 fall after she tripped in the bathroom -Confirmed on CT - 3rd -4th minimally displaced anterior right rib fractures -Pain medications as ordered -RT/IS -Supportive care Right humeral fracture -2/2 fall as above -Surgical neck fx extending into 2 places in the humeral head -Dr. Valdez consulted in ED and reports there is nothing surgical that can be done -Pain medications as ordered -sling and swath -PT/OT -Supportive care Anemia, mild -Acute on chronic -Hgb 11.1, hct 34 -Iron studies ordered -Monitor Chronic: HTN - stable, home meds and PRN BP Meds as needed Hx/o ID with stents placed in 2014 GERD recurrent UTIs PCOS Arthritis osteoporosis HX/o CVA and TIAs peripheral neuropathy - home gabapentin Plan: Admit to medical floor CM for discharge planning PT/OT Other orders as indicated above Home medications as ordered Routine AM labs Code Status: DNR/DNI. Her PCP is Dr. Gonzalez at [facility] in [place].
[2017-05-18] MEDS ORDERED: Ondansetron 4 MG/2 ML SDV IV PRN (19:39)
[2017-05-18] MEDS ORDERED: Polyethylene Glycol 3350 Powder 17 GM Packet PO PRN (19:39)
[2017-05-18] MEDS ORDERED: Docusate Sodium 100 MG Cap PO PRN (19:39)
[2017-05-18] MEDS ORDERED: Morphine 4 MG/ML Syringe IVPUSH PRN (19:39)
[2017-05-18] MEDS ORDERED: Ondansetron 4 MG Tab.DIS PO PRN (19:39)
[2017-05-18] MEDS ORDERED: Albuterol/Ipratropium 3.0-0.5 MG/3 ML Neb Soln NEB PRN (19:39)
[2017-05-18] MEDS ORDERED: Bisacodyl 5 MG Tab PO PRN (19:39)
[2017-05-18] MEDS ORDERED: Acetaminophen 325 MG Tab PO PRN (19:39)
[2017-05-18] MEDS ORDERED: Metoprolol Tartrate 5 MG/5 ML SDV IVPUSH PRN (19:47)
[2017-05-18] MEDS ORDERED: hydrALAZINE 20 MG/ML SDV IVPUSH PRN (19:47)
[2017-05-18] MEDS: Gabapentin 100 MG Cap PO SCH (21:23)
[2017-05-18] MEDS: Pantoprazole 40 MG Tab.CR PO SCH (21:23)
[2017-05-18] MEDS: Mirtazapine 30 MG Tab PO SCH (21:23)
[2017-05-18] MEDS: Acetaminophen/oxyCODONE 325-5 MG Tab PO PRN (21:24)
[2017-05-18] MEDS ORDERED: Magnesium Sulfate/Water 2 GM in Premix Bag 1 BAG IV ONE (22:00)
[2017-05-18] MEDS ORDERED: Sodium Chloride 0.9% 1,000 ML IV SCH (23:00)
[2017-05-18] MEDS: Potassium Chloride 100 ML IV SCH (23:17)
[2017-05-19] MEDS: Potassium Chloride 100 ML IV SCH ×5 (00:20→02:49)
[2017-05-19] MEDS: Acetaminophen/oxyCODONE 325-5 MG Tab PO PRN ×5 (01:47→22:57)
--- NOTE | 2017-05-19 06:54 | CR ---
Right elbow: Four views of the right elbow were obtained. Comparison: No prior elbow study. Bony structures are osteoporotic. Small calcification is seen within the posterior soft tissues above the elbow which is incidental. Small soft tissue injury is seen posteriorly distal to the elbow. No acute fracture or other bony abnormality is seen. No joint effusion is identified. Impression: 1. Incidental findings. No acute bony abnormality is seen. Diagnostic code #2
--- NOTE | 2017-05-19 08:27 | PCM.PN ---
- General Info Date of Service: 05/19/17 Admission Dx/Problem (Free Text): Admission Diagnosis/Problem Admission Diagnosis/Problem Rib pain on right side Functional Status: Reports: Pain Controlled, Tolerating Diet, Urinating. Denies : New Symptoms - Review of Systems General: Denies: Fever, Weakness, Malaise HEENT: Reports: No Symptoms Pulmonary: Reports: Pleuritic Chest Pain (mild). Denies: Shortness of Breath Cardiovascular: Denies: Chest Pain Gastrointestinal: Denies: Abdominal Pain, Nausea, Vomiting Genitourinary: Reports: No Symptoms Musculoskeletal: Reports: No Symptoms Skin: Denies: Cyanosis, Jaundice, Mottled, Pallor, Diaphoresis Neurological: Denies: Confusion, Difficulty Walking, Weakness, Gait Disturbance Psychiatric: Denies: Depression, Anxiety, Agitation, Hallucinations Systems Review Comment:: No significant overnight or acute issues. She had a good night. She is comfortable and in no acute distress. She reports no new complaints. - Patient Data Vitals - Most Recent: Last Vital Signs Temp 36.7 C 05/19/17 03:33 Pulse 73 05/19/17 03:34 Resp 16 05/19/17 03:33 BP 130/79 05/19/17 03:34 Pulse Ox 90 L 05/19/17 03:34 Weight - Most Recent: 39.281 kg I&O - Last 24 Hours: Intake & Output 05/18/17 05/19/17 05/19/17 22:59 06:59 14:59 Intake Total 0 825 Output Total 300 Balance 0 525 Lab Results Last 24 Hours: Laboratory Results - last 24 hr 05/18/17 05/18/17 05/18/17 Range/Units 19:30 19:55 19:55 WBC 8.96 (3.98-10.04) K/mm3 RBC 3.29 L (3.98-5.22) M/mm3 Hgb 11.1 L (11.2-15.7) gm/L Hct 34.0 L (34.1-44.9) % MCV 103.3 H (79.4-94.8) fl MCH 33.7 H (25.6-32.2) pg MCHC 32.6 (32.2-35.5) g/dl RDW Std Deviation 46.9 H (36.4-46.3) fL Plt Count 179 L (182-369) K/mm3 MPV 9.5 (9.4-12.3) fl Neut % (Auto) 88.0 H (34.0-71.1) % Lymph % (Auto) 5.5 L (19.3-51.7) % [place] % (Auto) 6.3 (4.7-12.5) % Eos % (Auto) 0 L (0.7-5.8) Baso % (Auto) 0.0 L (0.1-1.2) % Neut # (Auto) 7.89 H (1.56-6.13) K/mm3 Lymph # (Auto) 0.49 L (1.18-3.74) K/mm3 [place] # (Auto) 0.56 H (0.24-0.36) K/mm3 Eos # (Auto) 0.00 L (0.04-0.36) K/mm3 Baso # (Auto) 0.00 L (0.01-0.08) K/mm3 Manual Slide Review Abnormal smear Sodium 138 (136-145) mEq/L Potassium 3.5 (3.5-5.1) mEq/L Chloride 103 (98-107) mEq/L Carbon Dioxide 27 (21-32) mEq/L Anion Gap 11.5 (5-15) BUN 25 H (7-18) mg/dL Creatinine 0.6 (0.55-1.02) mg/dL Est Cr Clr Drug Dosing 41.03 mL/min Estimated GFR (MDRD) > 60 (>60) mL/min BUN/Creatinine Ratio 41.7 H (14-18) Glucose 182 H (83-115) mg/dL Calcium 8.5 (8.5-10.1) mg/dL Magnesium 1.8 (1.8-2.4) mg/dl Iron (50-170) ug/dL TIBC (100-400) ug/dL % Saturation (20-55) % Transferrin (202-364) mg/dL Total Bilirubin 0.4 (0.2-1.0) mg/dL AST 26 (15-37) U/L ALT 60 H (14-59) U/L Alkaline Phosphatase 101 (46-116) U/L Total Protein 6.9 (6.4-8.2) g/dl Albumin 3.8 (3.4-5.0) g/dl Globulin 3.1 gm/dL Albumin/Globulin Ratio 1.2 (1-2) MRSA (PCR) Negative 05/19/17 05/19/17 05/19/17 Range/Units 02:35 05:31 05:31 WBC 6.59 (3.98-10.04) K/mm3 RBC 3.09 L (3.98-5.22) M/mm3 Hgb 10.4 L (11.2-15.7) gm/L Hct 32.2 L (34.1-44.9) % MCV 104.2 H (79.4-94.8) fl MCH 33.7 H (25.6-32.2) pg MCHC 32.3 (32.2-35.5) g/dl RDW Std Deviation 48.2 H (36.4-46.3) fL Plt Count 177 L (182-369) K/mm3 MPV 10.0 (9.4-12.3) fl Neut % (Auto) 72.8 H (34.0-71.1) % Lymph % (Auto) 14.7 L (19.3-51.7) % [place] % (Auto) 11.8 (4.7-12.5) % Eos % (Auto) 0.3 L (0.7-5.8) Baso % (Auto) 0.2 (0.1-1.2) % Neut # (Auto) 4.80 (1.56-6.13) K/mm3 Lymph # (Auto) 0.97 L (1.18-3.74) K/mm3 [place] # (Auto) 0.78 H (0.24-0.36) K/mm3 Eos # (Auto) 0.02 L (0.04-0.36) K/mm3 Baso # (Auto) 0.01 (0.01-0.08) K/mm3 Manual Slide Review Not Reportable Sodium 138 (136-145) mEq/L Potassium 4.8 4.3 (3.5-5.1) mEq/L Chloride 104 (98-107) mEq/L Carbon Dioxide 28 (21-32) mEq/L Anion Gap 10.3 (5-15) BUN 22 H (7-18) mg/dL Creatinine 0.4 L (0.55-1.02) mg/dL Est Cr Clr Drug Dosing 60.29 mL/min Estimated GFR (MDRD) > 60 (>60) mL/min BUN/Creatinine Ratio 55.0 H (14-18) Glucose 97 (83-115) mg/dL Calcium 8.5 (8.5-10.1) mg/dL Magnesium 2.5 H (1.8-2.4) mg/dl Iron (50-170) ug/dL TIBC (100-400) ug/dL % Saturation (20-55) % Transferrin (202-364) mg/dL Total Bilirubin (0.2-1.0) mg/dL AST (15-37) U/L ALT (14-59) U/L Alkaline Phosphatase (46-116) U/L Total Protein (6.4-8.2) g/dl Albumin (3.4-5.0) g/dl Globulin gm/dL Albumin/Globulin Ratio (1-2) MRSA (PCR) 05/19/17 Range/Units 05:31 WBC (3.98-10.04) K/mm3 RBC (3.98-5.22) M/mm3 Hgb (11.2-15.7) gm/L Hct (34.1-44.9) % MCV (79.4-94.8) fl MCH (25.6-32.2) pg MCHC (32.2-35.5) g/dl RDW Std Deviation (36.4-46.3) fL Plt Count (182-369) K/mm3 MPV (9.4-12.3) fl Neut % (Auto) (34.0-71.1) % Lymph % (Auto) (19.3-51.7) % [place] % (Auto) (4.7-12.5) % Eos % (Auto) (0.7-5.8) Baso % (Auto) (0.1-1.2) % Neut # (Auto) (1.56-6.13) K/mm3 Lymph # (Auto) (1.18-3.74) K/mm3 [place] # (Auto) (0.24-0.36) K/mm3 Eos # (Auto) (0.04-0.36) K/mm3 Baso # (Auto) (0.01-0.08) K/mm3 Manual Slide Review Sodium (136-145) mEq/L Potassium (3.5-5.1) mEq/L Chloride (98-107) mEq/L Carbon Dioxide (21-32) mEq/L Anion Gap (5-15) BUN (7-18) mg/dL Creatinine (0.55-1.02) mg/dL Est Cr Clr Drug Dosing mL/min Estimated GFR (MDRD) (>60) mL/min BUN/Creatinine Ratio (14-18) Glucose (83-115) mg/dL Calcium (8.5-10.1) mg/dL Magnesium (1.8-2.4) mg/dl Iron 37 L (50-170) ug/dL TIBC 184 (100-400) ug/dL % Saturation 20 (20-55) % Transferrin 147 L (202-364) mg/dL Total Bilirubin (0.2-1.0) mg/dL AST (15-37) U/L ALT (14-59) U/L Alkaline Phosphatase (46-116) U/L Total Protein (6.4-8.2) g/dl Albumin (3.4-5.0) g/dl Globulin gm/dL Albumin/Globulin Ratio (1-2) MRSA (PCR) Med Orders - Current: Current Medications Acetaminophen (Tylenol) 650 mg PO Q4H PRN PRN Reason: Pain (Mild 1-3)/fever Albuterol/Ipratropium (Duoneb 3.0-0.5 Mg/3 Ml) 3 ml NEB Q4H PRN PRN Reason: Shortness Of Breath/wheezing Aspirin (Halfprin) 81 mg PO DAILY [facility] Bisacodyl (Dulcolax) 5 mg PO DAILY PRN PRN Reason: Constipation Cholecalciferol (Vitamin D3) 2,000 units PO DAILY [facility] Docusate Sodium (Colace) 100 mg PO BID PRN PRN Reason: Constipation Gabapentin (Neurontin) 100 mg PO BID [facility] Last Admin: 05/18/17 21:23 Dose: 100 mg Hydralazine HCl (Apresoline) 10 mg IVPUSH Q6H PRN PRN Reason: Hypertension Magnesium Sulfate (Pharmacy To Dose - Magnesium Replacement) 1 dose .XX ASDIRECTED [facility] Metoprolol Tartrate (Lopressor) 5 mg IVPUSH Q4H PRN PRN Reason: Tachycardia Mirtazapine (Remeron) 30 mg PO BEDTIME [facility] Last Admin: 05/18/17 21:23 Dose: 30 mg Morphine Sulfate (Morphine) 0.25 mg IVPUSH Q2H PRN PRN Reason: Pain (severe 7-10) Stop: 05/19/17 19:40 Multivitamins (Thera) 1 each PO DAILY [facility] Non-Formulary Medication (Nut.Tx.Impaired Digest Fxn [Ensure Clear]) 4 oz PO QID [facility] Ondansetron HCl (Zofran Odt) 4 mg PO Q6H PRN PRN Reason: nausea, able to take PO Ondansetron HCl (Zofran) 4 mg IV Q6H PRN PRN Reason: Nausea/Vomiting Oxycodone/Acetaminophen (Percocet 325-5 Mg) 1 tab PO Q4H PRN PRN Reason: Pain (moderate 4-6) Last Admin: 05/19/17 05:43 Dose: 1 tab Pantoprazole Sodium (Protonix) 40 mg PO BID [facility] Last Admin: 05/18/17 21:23 Dose: 40 mg Polyethylene Glycol (Miralax) 17 gm PO DAILY PRN PRN Reason: Constipation Potassium Chloride (Pharmacy To Dose - Potassium Replacement) 1 dose .XX ASDIRECTED [facility] Senna/Docusate Sodium (Senna Plus) 1 tab PO BID PRN PRN Reason: Constipation Sertraline HCl (Zoloft) 50 mg PO DAILY [facility] Sodium Chloride (Saline Flush) 10 ml FLUSH ASDIRECTED PRN PRN Reason: Keep Vein Open Last Admin: 05/18/17 16:54 Dose: 10 ml Discontinued Medications Hydromorphone HCl (Dilaudid) 0.5 mg IVPUSH ONETIME ONE Stop: 05/18/17 16:36 Last Admin: 05/18/17 16:51 Dose: 0.5 mg Potassium Chloride (Kcl 10 Meq In Water 100 Ml) 100 mls @ 100 mls/hr IV Q1H [facility] Stop: 05/19/17 01:59 Last Admin: 05/19/17 02:49 Dose: Not Given Magnesium Sulfate 2 gm/ Premix 50 mls @ 50 mls/hr IV ONETIME ONE Stop: 05/18/17 22:59 Last Admin: 01/16/18 01:21 Dose: 50 mls/hr Sodium Chloride (Normal Saline) 1,000 mls @ 75 mls/hr IV ASDIRECTED [facility] Last Admin: 05/18/17 23:13 Dose: 75 mls/hr Potassium Chloride (Kcl 10 Meq In Water 100 Ml) 100 mls @ 100 mls/hr IV Q1H [facility] Stop: 05/19/17 03:29 Last Admin: 05/19/17 02:45 Dose: 100 mls/hr Tramadol HCl (Ultram) 50 mg PO ONETIME ONE Stop: 05/18/17 15:26 Last Admin: 05/18/17 15:55 Dose: 50 mg - Exam General: Alert, Oriented, Cooperative, No Acute Distress HEENT: Pupils Equal, Pupils Reactive, EOMI, Mucous Membr. Moist/[place] Neck: Supple, Trachea Midline, No JVD Lungs: Normal Respiratory Effort, Decreased Breath Sounds Cardiovascular: Regular Rate, Regular Rhythm GI/Abdominal Exam: Normal Bowel Sounds, Soft, Non-Tender, No Organomegaly, No Distention, No Abnormal Bruit (Female) Exam: Deferred Back Exam: Normal Inspection, Decreased Range of Motion Extremities: Normal Inspection, Normal Range of Motion, Non-Tender, No Pedal Edema, Normal Capillary Refill Peripheral Pulses: 2+: Dorsalis Pedis (L), Dorsalis Pedis (R) Skin: Warm, Dry, Intact Neurological: No New Focal Deficit Psy/Mental Status: Alert, Normal Affect, Normal Mood - Problem List Review Problem List Initiated/Reviewed/Updated: Yes - Plan Plan:: I/P: Acute: Several Rib Fractures -2/2 fall after she tripped in the bathroom -Confirmed on CT - - minimally displaced anterior right rib fractures -Pain medications as ordered; pain is controlled -RT/IS -Supportive care Right humeral fracture -2/2 fall as above -Surgical neck fx extending into 2 places in the humeral head -Dr. Valdez consulted in ED and reports there is nothing surgical that can be done -Pain medications as ordered; pain is controlled -Continue sling and swathe & PT/OT -Supportive care Chronic: HTN - stable, home meds and PRN BP Meds as needed Hx/o NM with stents placed in 2014 GERD recurrent UTIs PCOS Arthritis Osteoporosis HX/o CVA and TIAs peripheral neuropathy - home gabapentin Anemia, Stable -Acute on chronic -Hgb 11.1, hct 34--> 10.9 -Iron studies ordered: Low TIBC and Transferrin suggestive of Anemia of Chronic Disease Plan: She is clinically stable Continue current treatment Routine AM labs Continue PT/OT Other orders as indicated above CM for discharge planning Ortho eval after discharge Possible d/c in AM Code Status: DNR/DNI. Her PCP is Dr. Gonzalez at [facility] in [place].
[2017-05-19] MEDS: Cholecalciferol (Vitamin D3) 1,000 Unit Tab PO SCH (09:42)
[2017-05-19] MEDS: Sertraline 50 MG Tab PO SCH (09:42)
[2017-05-19] MEDS: Multivitamins,Therapeutic Tab PO SCH (09:42)
[2017-05-19] MEDS: Aspirin 81 MG Tab.EC PO SCH (09:42)
[2017-05-19] MEDS: Pantoprazole 40 MG Tab.CR PO SCH ×2 (09:42→22:56)
[2017-05-19] MEDS: Gabapentin 100 MG Cap PO SCH ×2 (12:16→22:56)
--- NOTE | 2017-05-19 15:21 | CR ---
Chest and ribs: Frontal view of the chest was obtained as well as three additional views of the ribs. Comparison: Prior chest CT of 05/18/17. No acute parenchymal densities are seen. Heart is slightly enlarged. Tortuous thoracic aorta is seen. Several right-sided rib fractures are seen. Scoliosis is noted within the spine. Osteopenia is seen. No pneumothorax is identified. Deformity of the distal right clavicle compatible with old healed fracture. Acute fracture is seen within the right humeral head. Impression: 1. Several right-sided rib fractures as well as proximal humeral head fracture. 2. Other incidental findings. No significant change from previous chest CT. Diagnostic code #3
[2017-05-19] MEDS: ENSURE CLEAR PO SCH (20:04)
[2017-05-19] MEDS: Mirtazapine 30 MG Tab PO SCH (22:56)
[2017-05-20 08:06] VITALS: BP 114/69
--- NOTE | 2017-05-20 09:29 | PCM.DCSUM1 ---
Discharge Summary - Hospital Course Brief History: Niecy Ribeiro is an 86 yo female who presents to our ED today from [facility] after she fell in her bathroom she reportedly tripped and lost her balance as she was using her walker landing on her right shoulder and right side of her head. An abrasion to the right side of her occipital area and mild pain in her neck. Obvious injury to right shoulder with edema and ecchymosis. No chest pain, short of breath, abdominal pain, pelvic pain, or hip pain. She was admitted for observation and pain management. - Discharge Data Discharge Date: 05/20/17 Discharge Disposition: Home, Self-Care 01 Condition: Good - Discharge Diagnosis/Problem(s) (1) Multiple rib fractures SNOMED Code(s): 8860967 ICD Code: S22.49XA - MULTIPLE FRACTURES OF RIBS, UNSP SIDE, INIT FOR CLOS FX Status: Acute (2) Abrasion of right elbow SNOMED Code(s): 258069221 ICD Code: S50.311A - ABRASION OF RIGHT ELBOW, INITIAL ENCOUNTER Status: Acute Qualifiers: Encounter type: initial encounter Qualified Code(s): S50.311A - Abrasion of right elbow, initial encounter (3) Abrasion of scalp SNOMED Code(s): 703560097 ICD Code: S00.01XA - ABRASION OF SCALP, INITIAL ENCOUNTER Status: Acute Qualifiers: Encounter type: initial encounter Qualified Code(s): S00.01XA - Abrasion of scalp, initial encounter (4) Humerus fracture SNOMED Code(s): 46879171 ICD Code: S42.309A - UNSP FRACTURE OF SHAFT OF HUMERUS, UNSP ARM, INIT Status: Acute Qualifiers: Encounter type: initial encounter Humerus Location: surgical neck Fracture type: closed Fracture alignment: nondisplaced Laterality: right - Patient Summary/Data Operative Procedure(s) Performed: None Complications: None Consults: Consultations 05/18/17 19:39 Consult to Case Management [CONS] Routine Consult to Spiritual Care [CONS] Routine OT Evaluation and Treatment [CONS] Routine PT Evaluation and Treatment [CONS] Routine Labs Pending at D/C: None Recommended Follow-up Testing/Procedures: None Planned Operative Procedure(s) after DC: None Hospital Course: Patient was primarily admitted for medical management of right humerus fracture associated with multiple rib fractures that was secondary to mechanical fall. She carried risk factors such as impaired vision, gait instability, osteoporosis , and a few anticholinegic drugs such as gabapentin, remeron and zoloft. Her stable broken bones were confirmed by imaging study and did not require no more than conservative management. Her hospital course was uncomplicated. A repeat of her thoraxic x-ray showed no worsening of her rib fractures. Throughout her short stay, she was comfortable with pain medications and tolerated conservative PT and OT treatment. Patient clinically stable upon discharge. She was released with Tramadol PRN for pain control. She was advised to follow up with outpatient Orthopedic for evaluation on her broken arm. She was further advised to come back or seek immediate care should her symptom persist or gets worse. The patient express understand and in agreement with the plans as discussed above. All questions were answered. Her PCP was called and updated regarding discharge care plan. - Patient Instructions Diet: Usual Diet as Tolerated Activity: As Tolerated Driving: Do Not Drive Showering/Bathing: May Shower Notify Provider of: Fever, Increased Pain, Swelling and Redness, Nausea and/or Vomiting Other/Special Instructions: - Please take new medication as directed. - Resume all home medications. - Activity as per PT/OT instructions. - Caution on taking Tramadol along with Gabapentin and/or Remeron--may increased risk of confusion or reduced level of alertness--> high fall risk. - Keep scheduled outpatient Ortho appointment. - Continue PT/OT. - Follow up with PCP in 1 week - Discharge Plan Prescriptions/Med Rec: traMADol HCl [Tramadol HCl] 50 mg PO Q6H PRN #20 tablet PRN Reason: Other Home Medications: Home Meds Cholecalciferol (Vitamin D3) [Vitamin D3] 2,000 unit PO DAILY 01/25/15 [History] Acetaminophen [Tylenol] 650 mg PO Q6HR PRN 07/02/16 [History] Alpha Lipoic Acid 600 mg PO DAILY 07/02/16 [History] Gabapentin [Neurontin] 100 mg PO BID 07/02/16 [History] Multivitamin with Minerals [Multiple Vitamin] 1 each PO DAILY 07/02/16 [History] Ondansetron [Zofran ODT] 4 mg PO Q6H PRN 07/02/16 [History] Pantoprazole Sodium [Protonix] 40 mg PO BID 07/02/16 [History] Polyethylene Glycol 3350 [MiraLAX] 17 gm PO DAILY 09/16/16 [History] Aspirin [Adult Low Dose Aspirin EC] 81 mg PO DAILY 09/17/16 [History] Benzocaine/Menthol [Cepacol Sore Throat Lozenge] 1 each MM ASDIRECTED PRN [History] Clotrimazole [Lotrimin AF] 1 applic TP BID 05/18/17 [History] Compression Socks, Medium [Futuro Restoring] 1 each MC ASDIRECTED 05/18/17 [ History] Mirtazapine [Remeron] 30 mg PO BEDTIME 05/18/17 [History] Nut.Tx.Impaired Digest Fxn [Ensure Clear] 4 oz PO QID 05/18/17 [History] Sertraline [Zoloft] 50 mg PO DAILY 05/18/17 [History] traMADol HCl [Tramadol HCl] 50 mg PO Q6H PRN #20 tablet 05/20/17 [Rx] Referrals: Fred Gonzalez MD [Primary Care Provider] - - Discharge Summary/Plan Comment DC Time >30 min.: Yes (45 mins) Discharge Summary/Plan Comment: Discharge back to local [place] - General Info Date of Service: 05/20/17 Admission Dx/Problem (Free Text: Admission Diagnosis/Problem Admission Diagnosis/Problem Rib pain on right side Subjective Update: Follow Up Functional Status: Reports: Pain Controlled, Tolerating Diet, Ambulating, Urinating. Denies: New Symptoms - Review of Systems General: Denies: Fever, Weakness, Fatigue, Malaise HEENT: Reports: No Symptoms Pulmonary: Denies: Shortness of Breath Cardiovascular: Denies: Chest Pain Gastrointestinal: Denies: Abdominal Pain, Nausea, Vomiting Genitourinary: Reports: No Symptoms Musculoskeletal: Reports: No Symptoms Skin: Denies: Cyanosis, Jaundice, Mottled, Pallor, Diaphoresis Neurological: Denies: Confusion, Difficulty Walking, Weakness, Gait Disturbance Psychiatric: Denies: Confusion, Depression, Mood Lability, Anxiety, Agitation, Hallucinations Systems Review Comment: No overnight or acute issues. She is doing relatively well. Pain is controlled. She has no new complaints. - Patient Data Vitals - Most Recent: Last Vital Signs Temp 37.2 C 05/20/17 07:48 Pulse 77 05/20/17 07:48 Resp 16 05/20/17 07:48 BP 114/69 05/20/17 07:48 Pulse Ox 91 L 05/20/17 07:48 Weight - Most Recent: 39.151 kg I&O - Last 24 hours: Intake & Output 05/19/17 05/20/17 05/20/17 22:59 06:59 14:59 Intake Total 300 150 Output Total 550 375 Balance -250 -225 Lab Results - Last 24 hrs: Laboratory Results - last 24 hr 05/19/17 05/20/17 05/20/17 Range/Units 15:15 04:49 04:49 WBC 5.35 5.29 (3.98-10.04) K/mm3 RBC 3.28 L 3.11 L (3.98-5.22) M/mm3 Hgb 10.9 L 10.7 L (11.2-15.7) gm/L Hct 34.4 32.6 L (34.1-44.9) % MCV 104.9 H 104.8 H (79.4-94.8) fl MCH 33.2 H 34.4 H (25.6-32.2) pg MCHC 31.7 L 32.8 (32.2-35.5) g/dl RDW Std Deviation 47.6 H 48.9 H (36.4-46.3) fL Plt Count 180 L 172 L (182-369) K/mm3 MPV 9.3 L 9.7 (9.4-12.3) fl Neut % (Auto) 61.4 (34.0-71.1) % Lymph % (Auto) 24.0 (19.3-51.7) % Gordon % (Auto) 12.5 (4.7-12.5) % Eos % (Auto) 1.7 (0.7-5.8) Baso % (Auto) 0.2 (0.1-1.2) % Neut # (Auto) 3.25 (1.56-6.13) K/mm3 Lymph # (Auto) 1.27 (1.18-3.74) K/mm3 Gordon # (Auto) 0.66 H (0.24-0.36) K/mm3 Eos # (Auto) 0.09 (0.04-0.36) K/mm3 Baso # (Auto) 0.01 (0.01-0.08) K/mm3 Sodium 139 (136-145) mEq/L Potassium 4.2 (3.5-5.1) mEq/L Chloride 103 (98-107) mEq/L Carbon Dioxide 30 (21-32) mEq/L Anion Gap 10.2 (5-15) BUN 25 H (7-18) mg/dL Creatinine 0.5 L (0.55-1.02) mg/dL Est Cr Clr Drug Dosing 48.07 mL/min Estimated GFR (MDRD) > 60 (>60) mL/min BUN/Creatinine Ratio 50.0 H (14-18) Glucose 88 (83-115) mg/dL Calcium 8.5 (8.5-10.1) mg/dL Magnesium 1.9 (1.8-2.4) mg/dl Med Orders - Current: Current Medications Acetaminophen (Tylenol) 650 mg PO Q4H PRN PRN Reason: Pain (Mild 1-3)/fever Albuterol/Ipratropium (Duoneb 3.0-0.5 Mg/3 Ml) 3 ml NEB Q4H PRN PRN Reason: Shortness Of Breath/wheezing Aspirin (Halfprin) 81 mg PO DAILY [facility] Last Admin: 05/19/17 09:42 Dose: 81 mg Bisacodyl (Dulcolax) 5 mg PO DAILY PRN PRN Reason: Constipation Cholecalciferol (Vitamin D3) 2,000 units PO DAILY [facility] Last Admin: 05/19/17 09:42 Dose: 2,000 units Docusate Sodium (Colace) 100 mg PO BID PRN PRN Reason: Constipation Gabapentin (Neurontin) 100 mg PO BID [facility] Last Admin: 05/19/17 22:56 Dose: 100 mg Hydralazine HCl (Apresoline) 10 mg IVPUSH Q6H PRN PRN Reason: Hypertension Magnesium Sulfate (Pharmacy To Dose - Magnesium Replacement) 1 dose .XX ASDIRECTED [facility] Metoprolol Tartrate (Lopressor) 5 mg IVPUSH Q4H PRN PRN Reason: Tachycardia Mirtazapine (Remeron) 30 mg PO BEDTIME [facility] Last Admin: 05/19/17 22:56 Dose: 30 mg Multivitamins (Thera) 1 each PO DAILY [facility] Last Admin: 05/19/17 09:42 Dose: 1 each Ondansetron HCl (Zofran Odt) 4 mg PO Q6H PRN PRN Reason: nausea, able to take PO Ondansetron HCl (Zofran) 4 mg IV Q6H PRN PRN Reason: Nausea/Vomiting Oxycodone/Acetaminophen (Percocet 325-5 Mg) 1 tab PO Q4H PRN PRN Reason: Pain (moderate 4-6) Last Admin: 05/19/17 22:57 Dose: 1 tab Pantoprazole Sodium (Protonix) 40 mg PO BID [facility] Last Admin: 05/19/17 22:56 Dose: 40 mg Polyethylene Glycol (Miralax) 17 gm PO DAILY PRN PRN Reason: Constipation Potassium Chloride (Pharmacy To Dose - Potassium Replacement) 1 dose .XX ASDIRECTED [facility] Senna/Docusate Sodium (Senna Plus) 1 tab PO BID PRN PRN Reason: Constipation Sertraline HCl (Zoloft) 50 mg PO DAILY [facility] Last Admin: 05/19/17 09:42 Dose: 50 mg Sodium Chloride (Saline Flush) 10 ml FLUSH ASDIRECTED PRN PRN Reason: Keep Vein Open Last Admin: 05/18/17 16:54 Dose: 10 ml Discontinued Medications Hydromorphone HCl (Dilaudid) 0.5 mg IVPUSH ONETIME ONE Stop: 05/18/17 16:36 Last Admin: 05/18/17 16:51 Dose: 0.5 mg Potassium Chloride (Kcl 10 Meq In Water 100 Ml) 100 mls @ 100 mls/hr IV Q1H [facility] Stop: 05/19/17 01:59 Last Admin: 05/19/17 02:49 Dose: Not Given Magnesium Sulfate 2 gm/ Premix 50 mls @ 50 mls/hr IV ONETIME ONE Stop: 05/18/17 22:59 Last Admin: 05/19/17 01:21 Dose: 50 mls/hr Sodium Chloride (Normal Saline) 1,000 mls @ 75 mls/hr IV ASDIRECTED [facility] Last Admin: 05/18/17 23:13 Dose: 75 mls/hr Potassium Chloride (Kcl 10 Meq In Water 100 Ml) 100 mls @ 100 mls/hr IV Q1H [facility] Stop: 05/19/17 03:29 Last Admin: 05/19/17 02:45 Dose: 100 mls/hr Morphine Sulfate (Morphine) 0.25 mg IVPUSH Q2H PRN PRN Reason: Pain (severe 7-10) Stop: 05/19/17 19:40 Non-Formulary Medication (Nut.Tx.Impaired Digest Fxn [Ensure Clear]) 4 oz PO QID JUANA Last Admin: 05/19/17 20:04 Dose: Not Given Tramadol HCl (Ultram) 50 mg PO ONETIME ONE Stop: 05/18/17 15:26 Last Admin: 05/18/17 15:55 Dose: 50 mg - Exam General: Reports: Alert, Cooperative, No Acute Distress HEENT: Reports: Pupils Equal, Pupils Reactive, EOMI, Mucous Membr. Moist/Olivia Lopez De Gutierrez Neck: Reports: Supple, Trachea Midline, No JVD Lungs: Reports: Normal Respiratory Effort, Decreased Breath Sounds Cardiovascular: Reports: Regular Rate, Regular Rhythm GI/Abdominal Exam: Normal Bowel Sounds, Soft, Non-Tender, No Organomegaly, No Distention, No Abnormal Bruit, No Mass (Female) Exam: Deferred Rectal (Female) Exam: Deferred Back Exam: Reports: Normal Inspection, Decreased Range of Motion Extremities: Normal Inspection, Normal Range of Motion, Non-Tender, No Pedal Edema, Normal Capillary Refill, Other (sling and swathe on right arm) Skin: Reports: Warm, Dry, Intact Neurological: Reports: No New Focal Deficit Psy/Mental Status: Reports: Alert, Normal Affect, Normal Mood *Q Meaningful Use (DIS) - VTE *Q VTE Criteria *Q: - Stroke *Q Stroke Criteria *Q: - AMI *Q AMI Criteria *Q:
[2017-05-20] MEDS: Pantoprazole 40 MG Tab.CR PO SCH (10:05)
[2017-05-20] MEDS: Sertraline 50 MG Tab PO SCH (10:05)
[2017-05-20] MEDS: Cholecalciferol (Vitamin D3) 1,000 Unit Tab PO SCH (10:05)
[2017-05-20] MEDS: Aspirin 81 MG Tab.EC PO SCH (10:05)
[2017-05-20] MEDS: Multivitamins,Therapeutic Tab PO SCH (10:05)
[2017-05-20] MEDS: Gabapentin 100 MG Cap PO SCH (10:05)
[2017-05-20] MEDS: Acetaminophen/oxyCODONE 325-5 MG Tab PO PRN (10:45)
[2017-05-20] MEDS ORDERED: traMADol 50 MG Tab PO STA (11:52)
== END 2017-05-20 13:30 | disposition home or self-care (01) | DRG 184 ==
LOC: JD.ED 14:53 → JD.MS 17:08
PROVIDERS: ADMIT Internal Medicine; ATTEND Internal Medicine
DX: S42.201A Unspecified fracture of upper end of right humerus, initial encounter for closed fracture (principal); S22.41XA Multiple fractures of ribs, right side, initial encounter for closed fracture; I69.351 Hemiplegia and hemiparesis following cerebral infarction affecting right dominant side; S42.221A 2-part displaced fracture of surgical neck of right humerus, initial encounter for closed fracture; W01.0XXA Fall on same level from slipping, tripping and stumbling without subsequent striking against object, initial encounter; D64.9 Anemia, unspecified; I10 Essential (primary) hypertension; I25.2 Old myocardial infarction; Z95.5 Presence of coronary angioplasty implant and graft; K21.9 Gastro-esophageal reflux disease without esophagitis; Z87.440 Personal history of urinary (tract) infections; M19.90 Unspecified osteoarthritis, unspecified site; M81.0 Age-related osteoporosis without current pathological fracture; G62.9 Polyneuropathy, unspecified; R13.10 Dysphagia, unspecified; S50.311A Abrasion of right elbow, initial encounter; Z87.891 Personal history of nicotine dependence; S00.01XA Abrasion of scalp, initial encounter; S09.90XA Unspecified injury of head, initial encounter; Z66 Do not resuscitate; H35.30 Unspecified macular degeneration; Z88.1 Allergy status to other antibiotic agents; Z79.82 Long term (current) use of aspirin; Z79.899 Other long term (current) drug therapy; M85.80 Other specified disorders of bone density and structure, unspecified site
CPT/HCPCS: 70450; 71250; 72125; 73030; 73080; 96374; 99285; A9270; J1170; J7050; 36415; 71111; 71111-26; 80048; 80053; 83540; 83735; 84132; 84466; 85025; 85027; 87641; 97116-GP; 97162-GP; 97166-GO; 97530-GO; 97530-GP; J3475; J3480; J7040

== ENCOUNTER 2017-10-06 15:22 | Emergency (ER) | payer MEDICARE, OTHER ==
[2017-10-06 15:31] VITALS: BP 169/96
[2017-10-06] MEDS ORDERED: Sodium Chloride 0.9% 10 ML Syringe FLUSH PRN (15:32)
[2017-10-06] MEDS ORDERED: Ondansetron 4 MG/2 ML SDV IVPUSH ONE (15:33)
[2017-10-06] MEDS ORDERED: HYDROmorphone 0.5 MG/0.5 ML SYRINGE IVPUSH ONE (15:33)
[2017-10-06] MEDS ORDERED: Sodium Chloride 0.9% 1,000 ML IV SCH (15:45)
[2017-10-06] MEDS ORDERED: Acetaminophen 325 MG Tab PO ONE (16:04)
--- NOTE | 2017-10-06 16:18 | EDM.PDOC ---
ED HPI GENERAL MEDICAL PROBLEM - General Chief Complaint: Head Injury Stated Complaint: [facility] Time Seen by Provider: 10/06/17 15:28 Source of Information: Reports: Patient, EMS, Family, Longterm Records History Limitations: Reports: No Limitations - History of Present Illness INITIAL COMMENTS - FREE TEXT/NARRATIVE: The patient presents by [facility] from [facility] for a fall. She was reaching for something in her closet and she fell back and hit her head. She had no LOC. She complains of a headache. She has no neck pain. She has right lateral chest pain/back pain. She also has some left hip pain. The left hip pain is better now that she is out of the office. She has no abdominal pain, nausea or vomiting. She has a 1.5cm laceration to the back of her head. Onset: Sudden Duration: Minutes: Location: Reports: Head, Chest, Lower Extremity, Left (Hip) Quality: Reports: Sharp Severity: Moderate Improves with: Reports: Immobilization Worsens with: Reports: Movement Context: Reports: Trauma (She was reaching for something in her closet and she fall backward) Associated Symptoms: Reports: Chest Pain, Headaches. Denies: Cough, Fever/ Chills, Nausea/Vomiting, Shortness of Breath Head Pain Score (Numeric/FACES): 6 - Related Data Allergies Allergy/AdvReac Type Severity Reaction Status Date / Time nitrofurantoin Allergy Nausea and Verified 10/06/17 15:32 [From Macrobid] Vomiting nitrofurantoin Allergy Nausea and Verified 10/06/17 15:32 macrocrystalline Vomiting [From Macrobid] Home Meds: Home Meds Cholecalciferol (Vitamin D3) [Vitamin D3] 2,000 unit PO DAILY 01/25/15 [History] Acetaminophen [Tylenol] 650 mg PO Q6HR PRN 07/02/16 [History] Alpha Lipoic Acid 600 mg PO DAILY 07/02/16 [History] Gabapentin [Neurontin] 100 mg PO BID 07/02/16 [History] Multivitamin with Minerals [Multiple Vitamin] 1 each PO DAILY 07/02/16 [History] Ondansetron [Zofran ODT] 4 mg PO Q6H PRN 07/02/16 [History] Pantoprazole Sodium [Protonix] 40 mg PO BID 07/02/16 [History] Polyethylene Glycol 3350 [MiraLAX] 17 gm PO DAILY 09/16/16 [History] Aspirin [Adult Low Dose Aspirin EC] 81 mg PO DAILY 09/17/16 [History] Clotrimazole [Lotrimin AF] 1 applic TP BID 05/18/17 [History] Compression Socks, Medium [Futuro Restoring] 1 each MC ASDIRECTED 05/18/17 [ History] Mirtazapine [Remeron] 15 mg PO DAILY 05/18/17 [History] Sertraline [Zoloft] 50 mg PO DAILY 05/18/17 [History] traMADol HCl [Tramadol HCl] 50 mg PO Q6H PRN #20 tablet 05/20/17 [Rx] Bisacodyl [Dulcolax] 10 mg PO DAILY PRN 10/06/17 [History] Dextromethorphan HBr/B-Turner [Cepacol Sorethroat-Cough Dann] 1 each PO Q2HR PRN 10/06/17 [History] Sennosides [Senna] 1 tab PO DAILY 10/06/17 [History] Past Medical History HEENT History: Reports: Macular Degeneration Other HEENT History: wears eyeglasses Cardiovascular History: Reports: CAD, Hypertension, GA, PTCA, Stents Other Cardiovascular History: stent placment in Feb 2015. Respiratory History: Reports: None Gastrointestinal History: Reports: Colon Polyp, Gastritis, GERD, Other (See Below) Other Gastrointestinal History: inguinal hernia, dysphagia, constipation, epigastric pain, nausea Genitourinary History: Reports: UTI, Recurrent [employer] History: Reports: Polycystic Ovaries Other OB/BYN History: pt had bilateral large ovarian cyste resected in [facility] last year. They proved to be benign. One was the size of a softball and the other one was the size of a lemon. Surgery was carried out by Dr. Ny in [place]. Musculoskeletal History: Reports: Arthritis, Osteoarthritis, Osteoporosis Other Musculoskeletal History: intertrochanteric fracture, clavicle fracture Neurological History: Reports: CVA, Migraines, Neuropathy, Peripheral, TIA Other Neuro History: Right sided weakness, cerebral vasuclar dysfunction Psychiatric History: Reports: Depression Endocrine/Metabolic History: Reports: None Hematologic History: Reports: Anemia, Other (See Below) Other Hematologic History: hyponatremia Immunologic History: Reports: None Oncologic (Cancer) History: Reports: None Dermatologic History: Reports: Seborrheic Dermatitis - Infectious Disease History Infectious Disease History: Reports: Chicken Pox, Mumps - Past Surgical History HEENT Surgical History: Reports: Cataract Surgery, Detached Retina, Tonsillectomy, Other (See Below) Cardiovascular Surgical History: Reports: Carotid Stents GI Surgical History: Reports: Appendectomy, Colonoscopy, EGD, Other (See Below) Other GI Surgeries/Procedures: functional dyspepsia, polyp of the stomach and duodenum. Female Surgical History: Reports: Hysterectomy Other Female Surgeries/Procedures: Ovarian cysts removed 03/19. Pne size of grapefruit, one size of lemon. Pt verbalized decreased abdominal pain since surgery Social & Family History - Family History Family Medical History: Noncontributory Cardiac: Reports: GA - Tobacco Use Smoking Status *Q: Never Smoker - Caffeine Use Caffeine Use: Reports: Coffee - Recreational Drug Use Recreational Drug Use: No - Living Situation & Occupation Living situation: Reports: , Alone ED ROS GENERAL - Review of Systems Review Of Systems: See Below Constitutional: Reports: No Symptoms HEENT: Reports: Other (1.5cm laceration to the back of her head) Respiratory: Reports: No Symptoms Cardiovascular: Reports: Other (Right lateral chest pain) Endocrine: Reports: No Symptoms GI/Abdominal: Reports: No Symptoms : Reports: No Symptoms Musculoskeletal: Reports: Other (Left hip pain) ED EXAM, HEAD INJURY - Physical Exam Exam: See Below Exam Limited By: No Limitations General Appearance: Alert, No Apparent Distress Head: Normocephalic, Other (1.5cm laceration to the right upper occipital region ) Ears: Normal External Exam Nose: Normal Inspection Neck: Non-Tender, Normal Alignment, Normal Inspection Respiratory: No Respiratory Distress, Lungs Clear, Normal Breath Sounds Cardiovascular: Regular Rate, Rhythm, No Edema, No Murmur GI/Abdominal Exam: Soft, Non-Tender, No Organomegaly, No Mass Back Exam: Other (Pain to the right latearal back and chest) Extremities: Other (No pain upon palpation to the left hip. Some mild pain with movement) ED LACERATION/WOUND & YAKELIN PROC - Laceration/Wound Repair Head Lac/wound length in cm: 5 Appearance: Subcutaneous, Linear Anesthetic Type: Topical Skin Prep: Saline Exploration/Debridement/Repair: Wound Explored, In a Bloodless Field, Explored to Base Closed with: Charles # of Sutures: 5 Tetanus Status Addressed: Yes Complications: No Course - Vital Signs Last Recorded V/S: Last Vital Signs Temp 99.4 F 10/06/17 15:28 Pulse 80 10/06/17 15:28 Resp 19 10/06/17 15:28 BP 169/96 H 10/06/17 15:28 Pulse Ox 94 L 10/06/17 15:28 - Orders/Labs/Meds Orders: Active Orders 24 hr Category Date Time Status Peripheral IV Care [RC] . DIRECTED Care 10/06/17 15:33 Inactive Abdomen 1V Upright [CR] Stat Exams 10/06/17 15:32 Taken CXR [Chest 2V] [CR] Stat Exams 10/06/17 15:38 Taken Hip Min 2V or 3V Lt [CR] Stat Exams 10/06/17 15:38 Taken Meds: Medications Discontinued Medications Generic Name Dose Route Start Last Admin Trade Name Freq PRN Reason Stop Dose Admin Acetaminophen 975 mg 10/06/17 16:04 10/06/17 16:14 Tylenol PO 10/06/17 16:05 975 mg NOW ONE Administration Hydromorphone HCl 0.25 mg 10/06/17 15:33 Dilaudid IVPUSH 10/06/17 15:34 ONETIME ONE Sodium Chloride 1,000 mls @ 250 mls/hr 10/06/17 15:45 Normal Saline IV ASDIRECTED JUANA Lidocaine/Tetracaine 1 ml 10/06/17 16:30 10/06/17 16:37 Let Soln TOP 10/06/17 16:31 1 ml ONETIME ONE Administration Ondansetron HCl 4 mg 10/06/17 15:33 Zofran IVPUSH 10/06/17 15:34 ONETIME ONE Sodium Chloride 10 ml 10/06/17 15:32 Saline Flush FLUSH ASDIRECTED PRN Keep Vein Open - Re-Assessments/Exams Free Text/Narrative Re-Assessment/Exam: 10/06/17 16:[address] of her cervical spine and head. I also ordered x-rays of her left hip and chest. The x-ray of her hip shows no fracture just arthritis. The x-ray of her chest shows some old fractures to her right ribs and right humerus. I am waiting for the CT of her head and cervical spine. 10/06/17 16:[address] of her head and cervical spine show nothing acute. 10/06/17 17:22 I closed her wound with staple. Departure - Departure Time of Disposition: 17:25 Disposition: Home, Self-Care 01 Condition: Good Clinical Impression: Fall Qualifiers: Encounter type: initial encounter Qualified Code(s): W19.XXXA - Unspecified fall, initial encounter Head injury Qualifiers: Encounter type: initial encounter Qualified Code(s): S09.90XA - Unspecified injury of head, initial encounter Laceration of scalp Qualifiers: Encounter type: initial encounter Qualified Code(s): S01.01XA - Laceration without foreign body of scalp, initial encounter Contusion of left hip Qualifiers: Encounter type: initial encounter Qualified Code(s): S70.02XA - Contusion of left hip, initial encounter Contusion of right upper back excluding scapular region Qualifiers: Encounter type: initial encounter Qualified Code(s): S20.221A - Contusion of right back wall of thorax, initial encounter - Discharge Information Referrals: Fred Gonzalez MD [Primary Care Provider] - Forms: ED Department Discharge Additional Instructions: Clean the wound with warm soapy water 2 times per day and apply antibiotic ointment after. The charles can come out in 1 week. Take tylenol for pain. Please return if you are worse. - My Orders Last 24 Hours: My Active Orders 10/06/17 15:38 CXR [Chest 2V] [CR] Stat Hip Min 2V or 3V Lt [CR] Stat - Assessment/Plan Last 24 Hours: My Active Orders 10/06/17 15:38 CXR [Chest 2V] [CR] Stat Hip Min 2V or 3V Lt [CR] Stat
--- NOTE | 2017-10-06 16:23 | CT ---
Head CT Technique: Multiple axial sections through the brain were obtained. Intravenous contrast was not utilized. Comparison: Prior head CT exam of 05/18/17. Ventricles along with basal cisterns and sulci convexities are mildly to moderately prominent. Diminished density is noted within the periventricular and subcortical white matter which is compatible with small vessel ischemic demyelination change. Small old infarct is noted within the right basal ganglia. Mild dolichoectasia is seen of the left vertebral artery. No evidence of intracranial hemorrhage. No midline shift or mass effect is seen. Soft tissue swelling and small hematoma is seen within the posterior scalp. Bone window settings were reviewed which shows no calvarial fracture. Visualized sinuses are clear. Impression: 1. Senescent changes as noted above. 2. Mild soft tissue swelling and small hematoma posteriorly within the scalp. 3. No acute intracranial abnormality is seen. No acute skull abnormality is identified. Diagnostic code #2
--- NOTE | 2017-10-06 16:24 | CT ---
CT cervical spine Technique: Multiple axial sections were obtained from above C1 inferiorly to the bottom of T2. Reconstructed sagittal and coronal images were reviewed. Comparison: Prior CT cervical spine exam of 05/18/17. Spondylolisthesis is again seen at C4-5 and C5-6. Slightly more spondylolisthesis is noted at C6-7. These findings are caused by degenerative apophyseal change. Vertebral body heights are maintained. Degenerative change is noted between the dens and anterior arch of C1. No fracture is identified. There is fusion of the apophyseal joints at C4-5. Impression: 1. Degenerative change in other incidental findings. 2. Nothing acute is identified on CT study of the cervical spine. No significant change is seen from previous cervical spine CT exam. Diagnostic code #2
[2017-10-06] MEDS ORDERED: Lidocaine/EPINEPHrine/Tetracaine Soln 1 ML TOP ONE (16:30)
--- NOTE | 2017-10-07 08:47 | CR ---
Abdomen: Upright view of the abdomen was obtained. Small amount of free air is suggested beneath the right hemidiaphragm. Bowel gas pattern is normal. Slight scoliosis is noted within the spine with osteopenia. Impression: 1. Small amount of free air is suggested beneath the right hemidiaphragm. Diagnostic code #5
--- NOTE | 2017-10-07 09:47 | CR ---
Chest: Two views of the chest were obtained. Comparison: Prior chest x-ray of 05/19/17. Heart is slightly enlarged. Tortuous thoracic aorta is seen. Lungs show no acute parenchymal densities. Anterior wedge deformities are seen within the thoracic spine several of which have progressed from prior chest CT of 05/18/17. Kyphosis is present. No acute rib abnormality is definitely appreciated. Impression: 1. Mild anterior wedge deformities within the thoracic spine slightly progressed from prior chest CT. MRI would be needed to further age these findings if clinically indicated. 2. Kyphosis and other incidental findings. Nothing acute is otherwise seen. Diagnostic code #3
--- NOTE | 2017-10-07 10:39 | CR ---
Left hip: AP and frog-leg lateral views of the left hip were obtained. Comparison: Prior pelvis exam showing the left hip dated 12/13/15. Mild joint space narrowing is seen within the left hip. Bony structures are osteopenic. No acute fracture or other abnormality is identified. Impression: 1. Mild joint space narrowing and osteopenia. 2. Nothing acute is appreciated on two-view left hip exam. Diagnostic code #2
== END 2017-10-06 17:40 | disposition home or self-care (01) ==
LOC: JD.ED 15:22
DX: S01.01XA Laceration without foreign body of scalp, initial encounter (principal); S09.90XA Unspecified injury of head, initial encounter; S70.02XA Contusion of left hip, initial encounter; S20.221A Contusion of right back wall of thorax, initial encounter; I25.10 Atherosclerotic heart disease of native coronary artery without angina pectoris; I10 Essential (primary) hypertension; I25.2 Old myocardial infarction; Z95.5 Presence of coronary angioplasty implant and graft; Z87.440 Personal history of urinary (tract) infections; Z88.8 Allergy status to other drugs, medicaments and biological substances; Z79.899 Other long term (current) drug therapy; Z86.73 Personal history of transient ischemic attack (TIA), and cerebral infarction without residual deficits; W19.XXXA Unspecified fall, initial encounter
CPT/HCPCS: 12002; 70450; 71046; 72125; 73502; 99285; A9270; 74018; 74018-26; 99284-25